=== PATIENT | female | born 1970 | race Caucasian/White ===

== ENCOUNTER 2019-06-10 19:27 | Inpatient (IN) | payer BC ==
[2019-06-10 22:00] LABS: Urine Appearance Clear; Urine Bilirubin Negative (Negative); Urine Blood Negative (Negative); Urine Color Yellow; Urine Glucose Negative (Negative); Urine Ketones Trace (Negative); Urine Nitrite Negative (Negative); Urine Protein Negative (Negative); Urine Specific Gravity 1.011 (1.010-1.030); Urine Urobilinogen Negative (Negative)
[2019-06-10 22:02] LABS: ABS Basophils 0.1 10^3/ul (0-0.2); ABS Lymphocytes 0.3 10^3/ul (1.0-4.8); ABS Monocytes 0.8 10^3/ul (0-0.8); ABS Neutrophils 15.8 10^3/ul (1.5-7.7); Eosinophil % 0.1 %; Hematocrit 42 % (35-47); Hemoglobin 14.3 g/dL (12.0-16.0); Lymphocyte % 1.7 %; Mean Corpuscular HGB Conc 34 g/dL (31-36); Mean Corpuscular Hemoglobin 32 pg (27-31); Mean Corpuscular Volume 92 fL (80-97); Mean Platelet Volume 7.4 fL (7.4-10.4); Platelet Count 292 10^3/uL (150-450); Red Blood Count 4.53 10^6 /uL (3.70-4.87); Red Cell Distribution Width 14 % (10-15); White Blood Count 17.1 10^3/uL (3.5-10.8)
[2019-06-10 22:34] LABS: BUN/Creatinine Ratio 11.7 (8-20); Calcium 9.5 mg/dL (8.6-10.3); EGFR African American 129.7 (>60); EGFR Non-African American 107.2 (>60); Potassium 3.9 mmol/L (3.5-5.0)
[2019-06-11] MEDS ORDERED: Ondansetron INJ* 2 MG/ML VIAL IV ONE (00:19)
[2019-06-11] MEDS ORDERED: Ketorolac INJ* 30 MG/ML 1 ML VIAL IV PUSH ONE (00:19)
[2019-06-11] MEDS ORDERED: Morphine 4 MG/ML VIAL (1 ml) 4 MG/ML VIAL IV ONE ×2 (00:19→03:58)
[2019-06-11] MEDS ORDERED: NS 0.9% 1000 ML** 2,000 ML IV ONE (00:19)
--- NOTE | 2019-06-11 00:20 | ED ---
Abdominal Pain/Female - HPI Summary HPI Summary: Patient is a 48 y/o F presenting to [facility] with complaints of lower abdominal pain. Pain onset yesterday and is reported to wax and wane in intensity. She endorses nausea but denies vomiting and abnormal bowel movements. On vitals, patient's temp was 100.6 F. PSHx of hysterectomy is noted. She also claims to have Hx of intestinal twisting. Patient also makes note of a dental infection. On triage, pain is rated 10/10, nothing is noted to aggravate/alleviate Sx. Home medications and allergies are reviewed. - History of Current Complaint Chief Complaint: EDAbdPain Stated Complaint: ABD PAIN PER PT Time Seen by Provider: 06/11/19 00:01 Hx Obtained From: Patient Onset/Duration: Lasting Days, Still Present Timing: Days Pain Intensity: 10 Pain Scale Used: 0-10 Numeric Location: Other - lower abdomen Aggravating Factor(s): Nothing Alleviating Factor(s): Nothing Associated Signs and Symptoms: Positive: Fever, Nausea, Other: - negative - abnormal bowel movements. Negative: Vomiting Allergies/Adverse Reactions: Allergies Allergy/AdvReac Type Severity Reaction Status Date / Time azithromycin Allergy Vomiting Verified 06/11/19 07:21 hydrocodone Allergy Unknown Verified 06/11/19 00:26 Reaction Details meperidine Allergy Unknown Verified 06/11/19 00:26 Reaction Details tramadol Allergy Unknown Verified 06/11/19 07:21 Reaction Details codeine AdvReac Vomiting Verified 06/11/19 00:26 oxycodone AdvReac Vomiting Verified 06/11/19 00:26 PMH/Surg Hx/FS Hx/Imm Hx Respiratory History: Reports: Hx Asthma GI History: Reports: Hx Ulcer - Bleeding - Cancer History Hx Chemotherapy: No Hx Radiation Therapy: No - Surgical History Surgery Procedure, Year, and Place: tubal,hx endometriosis surgery x 4,left oopherectomy,breast implants, Infectious Disease History: No Infectious Disease History: Denies: Traveled Outside the [place] in Last 30 Days - Family History Known Family History: Positive: Other - Breast cancer - Social History Alcohol Use: Daily Alcohol Amount: 12 pack of beer daily x 1 year Substance Use Type: Reports: None Smoking Status (MU): Heavy Every Day Tobacco Smoker Review of Systems Positive: Fever Gastrointestinal: Other - negative - abnormal bowel movements Positive: Abdominal Pain, Nausea. Negative: Vomiting All Other Systems Reviewed And Are Negative: Yes Physical Exam - Summary Physical Exam Summary: Appearance: Well-appearing, Well-nourished, lying in bed comfortably Skin: Warm, dry, no obvious rash Eyes: sclera anicteric, no conjunctival pallor ENT: mucous membranes moist, pharynx appears normal Neck: Supple, nontender Respiratory: Clear to auscultation, no signs of respiratory distress Cardiovascular: Normal S1, S2. No murmurs. Normal distal pulses in tibial and radial bilaterally. Abdomen: Generalized abdominal tenderness with guarding and no rebound. Soft, normal active bowel sounds present Musculoskeletal: Normal, Strength/ROM Intact Neurological: A&Ox3, awake and alert, mentation is normal, speech is fluent and appropriate Psychiatric: affect is normal, does not appear anxious or depressed Triage Information Reviewed: Yes Vital Signs On Initial Exam: Initial Vitals Temp Pulse Resp BP Pulse Ox 100.6 F 92 18 151/101 97 06/10/19 19:29 06/10/19 19:29 06/10/19 19:29 06/10/19 19:29 06/10/19 19:29 Vital Signs Reviewed: Yes Diagnostics - Vital Signs Vital Signs Temp Pulse Resp BP Pulse Ox 06/10/19 21:38 100.1 F 101 18 143/89 99 06/10/19 19:29 100.6 F 92 18 151/101 97 - Laboratory Lab Results: Lab Results 06/10/19 06/10/19 06/10/19 Range/Units 21:43 21:53 21:53 WBC 17.1 H (3.5-10.8) 10^3/uL RBC 4.53 (3.70-4.87) 10^6 /uL Hgb 14.3 (12.0-16.0) g/dL Hct 42 (35-47) % MCV 92 (80-97) fL MCH 32 H (27-31) pg MCHC 34 (31-36) g/dL RDW 14 (10-15) % Plt Count 292 (150-450) 10^3/uL MPV 7.4 (7.4-10.4) fL Neut % (Auto) 92.8 % Lymph % (Auto) 1.7 % Bay % (Auto) 4.9 % Eos % (Auto) 0.1 % Baso % (Auto) 0.5 % Absolute Neuts (auto) 15.8 H (1.5-7.7) 10^3/ul Absolute Lymphs (auto) 0.3 L (1.0-4.8) 10^3/ul Absolute Monos (auto) 0.8 (0-0.8) 10^3/ul Absolute Eos (auto) 0.0 (0-0.6) 10^3/ul Absolute Basos (auto) 0.1 (0-0.2) 10^3/ul Absolute Nucleated RBC 0.0 10^3/ul Nucleated RBC % 0.0 Sodium 131 L (135-145) mmol/L Potassium 3.9 (3.5-5.0) mmol/L Chloride 100 L (101-111) mmol/L Carbon Dioxide 25 (22-32) mmol/L Anion Gap 6 (2-11) mmol/L BUN 7 (6-24) mg/dL Creatinine 0.60 (0.51-0.95) mg/dL Est GFR ( Amer) 129.7 (>60) Est GFR (Non-Af Amer) 107.2 (>60) BUN/Creatinine Ratio 11.7 (8-20) Glucose 138 H (70-100) mg/dL Calcium 9.5 (8.6-10.3) mg/dL Urine Color Yellow Urine Appearance Clear Urine pH 7.0 (5-9) Ur Specific [place] 1.011 (1.010-1.030) Urine Protein Negative (Negative) Urine Ketones Trace A (Negative) Urine Blood Negative (Negative) Urine Nitrate Negative (Negative) Urine Bilirubin Negative (Negative) Urine Urobilinogen Negative (Negative) Ur Leukocyte Esterase Negative (Negative) Urine Glucose Negative (Negative) Result Diagrams: 06/14/19 05:16 06/14/19 05:16 Lab Statement: Any lab studies that have been ordered have been reviewed, and results considered in the medical decision making process. - CT CT ABD/PEL CT Interpretation Completed By: Radiologist Summary of CT Findings: CT ABD/PEL IMPRESSION: 1. Contracted distal ileum with suggestion of slight wall and fold thickening. suggesting distal ileitis. There is mild distention of the preceding small. bowel suggesting some degree of relative obstruction. 2. Mild right middle lobe atelectasis since 2015. THIS REPORT WAS REVIEWED BY DR. KELLY. Abdominal Pain Fem Course/Dx - Course Course Of Treatment: Patient is a 48 y/o F presenting to [facility] with complaints of lower abdominal pain. Pain onset yesterday and is reported to wax and wane in intensity. She endorses nausea but denies vomiting and abnormal bowel movements. On vitals, patient's temp was 100.6 F. PSHx of hysterectomy is noted. She also claims to have Hx of intestinal twisting. On physical exam, there is generalized abdominal tenderness with guarding and no rebound. Bloodwork was obtained. Abnormal labs include WBC 17.1, MCH 32, absolute neuts 15.8, absolute lymphs 0.3, sodium 131, chloride 100, glucose 138. UA showed trace ketones. CT ABD/PEL IMPRESSION: 1. Contracted distal ileum with suggestion of slight wall and fold thickening. suggesting distal ileitis. There is mild distention of the preceding small. bowel suggesting some degree of relative obstruction. 2. Mild right middle lobe atelectasis since 2015. During ED course, patient received fluids, piperacillin sod/tazobactam sod 3.375 gm in sodium chloride, 100 mls @ 200 mls/hr IVPB, Zofran 8 mg IV, morphine 10 mg IV, 4 IV, and toradol 10 mg IV. Patients case was discussed with Dr. Lima, who agrees to consult on the patients case. Patients case was discussed with Dr. Samson Singleton accepts for admission. - Diagnoses Provider Diagnoses: Abdominal pain, SBO (small bowel obstruction) - Provider Notifications Discussed Care Of Patient With: Evans Davies Time Discussed With Above Provider: 04:25 Instructed by Provider To: Other - [id number] - Patients case was discussed with Dr. Lima, who agrees to consult on the patients case. Patients case was discussed with Dr. Davies, Dr. Davies accepts for admission. Discharge ED - Sign-Out/Discharge Documenting (check all that apply): Patient Departure - admit Patient Received Moderate/Deep Sedation with Procedure: No - Discharge Plan Condition: Fair Disposition: ADMITTED TO [facility] - Billing Disposition and Condition Condition: FAIR Disposition: Admitted to [facility] - Attestation Statements Document Initiated by Scribe: Yes Documenting Scribe: OCTAVIO SINGLETARY Provider For Whom Scribe is Documenting (Include Credential): JONATHAN KELLY MD Scribe Attestation: I, OCTAVIO SINGLETARY, scribed for JONATHAN KELLY MD on 06/15/19 at 0626. Scribe Documentation Reviewed: Yes Provider Attestation: The documentation as recorded by the scribeOCTAVIO accurately reflects the service I personally performed and the decisions made by me, JONATHAN KELLY MD Status of Scribginger Document: Viewed
[2019-06-11] MEDS ORDERED: Iohexol 300* (CONTRAST) 10 ML SDV IV ONE (00:31)
[2019-06-11] MEDS: Morphine 4 MG/ML VIAL (1 ml) 4 MG/ML VIAL IV PRN ×3 (02:06→13:41)
[2019-06-11] MEDS ORDERED: Piperacillin/Tazobac ADVAN(*) 3.375 GM in NS 0.9% 100 ML* 100 ML IVPB ONE (03:54)
[2019-06-11] MEDS: metroNIDAZOLE IV 500 MG/100ML* 500 MG/100 ML BAG IVPB SCH ×4 (07:21→23:57)
[2019-06-11] MEDS: Ciprofloxacin 400MG IVPREMIX(* 400 MG/200 ML BAG IVPB SCH ×3 (07:21→19:55)
[2019-06-11] MEDS: Nicotine* 2MG (FRUIT FLAVOR) GUM PO PRN ×4 (07:51→19:43)
[2019-06-11] MEDS: PROCHLORPERAZINE INJ 5 MG/ML 2 ML VIAL IV PRN ×3 (07:52→21:33)
[2019-06-11] MEDS: Enoxaparin(*) 40 MG/0.4 ML SYR SUBCUT SCH (07:59)
--- NOTE | 2019-06-11 09:49 | HP ---
CC: Dr. Sybil Jeffers; Dr. Rudy Spangler ADMISSION HISTORY AND PHYSICAL: DATE OF ADMISSION: 06/11/19 PRIMARY CARE PHYSICIAN: Dr. Sybil Jeffers. POOL ATTENDANT: Dr. Rudy Spangler. CHIEF COMPLAINT: Abdominal pain. HISTORY OF PRESENT ILLNESS: This is a 48-year-old female with past medical history of diverticulitis and diverticulosis previous small bowel obstruction and bleeding ulcers and recently diagnosed hypertension, but not started on the blood pressure medication yet, came in due to severe abdominal pain. The patient stated that she was in her usual state of health up until Monday morning when she started having severe abdominal pain, which is diffuse in nature going towards the back accompanied by some nausea and she stated that she had waves of pain, it almost felt like she was going into labor. The patient otherwise offers no chest pain, no shortness of breath, no vomiting, and no change in her bowel habits or diarrhea. She stated that her last bowel movement was yesterday morning when this all started and which was normal may be a little softer than her usual bowel movements, but otherwise she did not think much of it. PAST MEDICAL HISTORY: As mentioned, recently diagnosed with high blood pressure , but has not started her BP medications yet; history of diverticulitis and diverticulosis; history of SBO a few times; and history of bleeding ulcer. PAST SURGICAL HISTORY: Include breast augmentation surgery bilaterally and had previous laparoscopy for endometriosis with laser surgery multiple times and left laparoscopic oophorectomy in 2006. HOME MEDICATIONS: The patient only currently taking Lunesta p.r.n. for insomnia. ALLERGIES: The patient is allergic to multiple medications including HYDROCODONE, MEPERIDINE, CODEINE and OXYCODONE. All of which give her unknown reaction. FAMILY HISTORY: Family history of breast cancer in mom and high blood pressure in the mother as well. Mother is alive at age 65. Biological father at age 53 for unknown reasons. The patient never really met him or knew any further details. 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 Has a history of smoking about a pack a day for over 20 years, occasional use of alcohol. Denies any drug abuse. She is full code. REVIEW OF SYSTEMS: Fourteen point review of system did not reveal any information other than what is stated in the HPI. PHYSICAL EXAMINATION GENERAL: The patient is awake, alert, oriented x3, was noted to be in no acute respiratory distress. VITAL SIGNS: In the ER, temperature maximum was noted to be 100.6, BP was noted to be 109/65, heart rate 79, respiration rate 18, saturating 96% on room air. HEAD AND NECK: Atraumatic, normocephalic. Bilateral pupils were reactive. Oral mucosa was moist. Neck supple. No jugular venous distention. LUNGS: Clear to auscultation bilaterally. No wheezing, rhonchi or rales. HEART: S1, S2. Regular rate and rhythm. ABDOMEN: Soft, with tenderness, which is diffuse in nature, but worse in the lower abdomen especially on the right side, right lower quadrant and suprapubic area. EXTREMITIES: No cyanosis, clubbing or edema. DIAGNOSTICS STUDIES/LAB DATA: CBC shows elevated white count of 17.5, hemoglobin and hematocrit is stable, platelets count was stable. Basic metabolic panel was unremarkable except for some mild hyponatremia with sodium of 131. Urinalysis was positive for trace ketones, but negative for any nitrites. CT of abdomen and pelvis was read as contracted distal ileum with a suggestion of slight wall and fold thickening suggestive of distal ileitis. There is mild distention of preceding small bowel suggestive of some degree of relative obstruction, mild right middle lobe atelectasis since 2015 unchanged. IMPRESSION: This is 48-year-old female with history of diverticulitis here with the abdominal pain and noted to have ileitis. ASSESSMENT AND PLAN: 1. Sepsis secondary to ileitis. Sepsis qualifiers include high white count and elevated temperature of 100.6. We will start the patient on Cipro, Flagyl, start the patient on clear liquid diet and IV hydration. We will consult Dr. Spangler, who is patient's GI, but I spoke with Dr. Thompson, who will pass on message to Dr. Spangler to evaluate the patient, as the patient may benefit from some kind of colonoscopy versus endoscopy to evaluate for the ileitis to see if this is infectious versus inflammatory and to see if she would benefit from an inflammatory bowel disease testing. The other more remote possibility that it could be is given her history of endometritis, this could be a recurrence of endometritis as well, but all these possibilities would be based on GI's recommendations. 2. History of hypertension, currently stable blood pressures. We will monitor her blood pressure and consider starting any antihypertensives if it is elevated. 3. Hyponatremia likely secondary to dehydration and decreased oral intake. 4. DVT prophylaxis with Lovenox. 5. Code status full code. [id number]/[facility] #: [id number] MTDD
[2019-06-11] MEDS: Nicotine PATCH 21 MG/24 HR* PATCH TRANSDERM SCH (11:32)
--- NOTE | 2019-06-11 13:04 | CONS ---
CC: [facility]; Dr. Rudy Spangler; Dr. Sybil Jeffers, [facility] * CONSULTATION REPORT: DATE OF CONSULT: 06/11/19 REFERRING PROVIDER: Dr. Satish Brown from the emergency room. REASON FOR CONSULTATION: Abdominal pain. HISTORY OF PRESENT ILLNESS: Ms. Renee Armstrong is a 48-year-old woman with a history of diarrhea and per old records chronic abdominal discomfort, who presented to the emergency room yesterday evening with 12-hour complaints of abdominal pain mainly starting on the left side radiating across to the right. This was described as crampy and colicky, not radiating to her back. She had no nausea. She had a normal soft bowel movement yesterday morning. She had no fevers, shakes, or chills but was noted to have an elevated fever while in the emergency room last night. She gives a history of bowel obstructions in the past where she was told that she had "twisted bowel" but did not require surgery. She states that she was treated here at [facility] for this, but on review of the records over the past 10 to 12 years, I see no hospital admissions for diagnoses of small bowel obstructions; however, she has been in the emergency room twice in the last several years and has had 2 CAT scans done that were essentially unremarkable. She does have known diverticular disease. She has also undergone several laparoscopies apparently for endometrial disease. These were done at [facility]. She has also had a left ovary removed and she describes as a partial hysterectomy as well. She had undergone an upper endoscopy and colonoscopy with Dr. Spangler last in 2016. This showed diverticulosis and apparently severe adhesions and some erosions and gastritis in the stomach, but there were no other acute findings. Last night in the emergency room, she noted to have a fever of 100.6. Laboratory values included a white blood cell count of 17,000 with increase in absolute neutrophils. She was slightly hyponatremic, had a normal BUN and creatinine. I do not see whether lactic acid or C-reactive protein was performed. Liver transaminases were normal Urinalysis was unremarkable. She underwent a CT scan of the abdomen and pelvis. I did review these images and also reviewed these with Dr. Shah here at [facility] this morning. This showed no free fluid or extraluminal air. There was perhaps some narrowing of the distal ileum but he was not certain if this may have been normal peristalsis. There was some mild dilation of the distal small intestine ; however, there is rapid contrast flow into the cecum, which was fairly large and filled well with stool as contrast up into the transverse colon. Gallbladder was unremarkable. The appendix was clearly visualized and was normal. There was no free pelvic fluid or other acute findings. She was admitted to the hospitalist service and surgical consultation has been obtained. PAST MEDICAL HISTORY: 1. Chronic abdominal discomfort. 2. High blood pressure. 3. Diverticulosis. 4. Endometriosis. 5. Gastritis. PAST SURGICAL HISTORY: 1. Bilateral breast augmentation surgery. 2. Laparoscopy as per above for endometriosis. 3. Left laparoscopic oophorectomy. MEDICATIONS: Lunesta. ALLERGIES: To HYDROCODONE, MEPERIDINE, CODEINE, and OXYCODONE. She is vague about the reaction and is also vague as to why she has used these narcotics in the past. SOCIAL HISTORY: She is and lives in [place]. She has 2 teenage children. She currently works from home. She has a history of smoking about a pack a day for over 20 years and occasionally uses alcohol. She denies drug abuse. REVIEW OF SYSTEMS: A 14-point review of systems did not reveal any further information as described above. PHYSICAL EXAM: Temperature 97.1, pulse 79, blood pressure 122/67. General: She is a well-developed, slender female, appears to be in no apparent distress although she is somewhat fatigued. Sclerae are anicteric. Her oral mucosa was slightly dry. Lungs were clear to auscultation with normal respiratory effort. Heart has regular rate and rhythm without murmurs, rubs, or gallops. Her abdomen is soft but slightly distended. She has some laparoscopic well-healed incisions without hernia. I appreciate no inguinal or femoral hernias. She had normoactive bowel sounds throughout. She has some mild generalized tenderness. There is no rebound, guarding, or peritoneal irritation. DIAGNOSTIC STUDIES/LAB DATA: Laboratory values as above. IMPRESSION: Abdominal discomfort with a leukocytosis. She apparently has chronic abdominal discomfort at times and has chronic diarrhea, has been seen by Dr. Spangler in the past. CT scan as per above shows no evidence of an acute inflammatory process such as appendicitis or cholecystitis or diverticulitis and there is no free fluid or extra-luminal air. There is no evidence of obstruction. There was concern there may be some narrowing or thickening of portion of the ileum, but this may well be peristaltic in nature. She has been admitted to the hospitalist service, was started on IV Cipro and Flagyl. Dr. Spangler from GI has also been consulted. At this point, I do not believe that she has an acute surgical abdomen although certainly the leukocytosis is concerning, although now she is afebrile with no evidence of tachycardia and her exam is fairly benign at this point. I agree with the present management. We will follow her closely with her. If she developed worsening abdominal discomfort and persistent or elevated leukocytosis, or development of sepsis, she will most likely require surgical intervention. Thank you for the consultation. We will follow her closely with you. [id number]/[facility] #: [id number] ALAN
[2019-06-11] MEDS ORDERED: traZODone TAB* 50 MG TAB PO PRN (15:12)
[2019-06-11] MEDS: NS 0.9% 1000 ML** 1,000 ML IV SCH (15:37)
[2019-06-11 18:10] LABS: C Reactive Protein 62.36 mg/L (<8.01)
[2019-06-11] MEDS ORDERED: HYDROmorphone TAB* 2 MG PO PRN (18:40)
[2019-06-11] MEDS ORDERED: Morphine INJ* 2 MG/ML 1 ML SYRINGE (TWO MG - NEW SYRINGE VERSION) IV PRN (18:49)
--- NOTE | 2019-06-11 19:00 | PN ---
Subjective Date of Service: 06/11/19 Interval History: patient seen, she was very upset about being in the hospital she wanted to go home as she was not able to sleep all night last night, also decline having any procedure if required. I met with the patient, I was able to explain to her that no procedure is required at this time and consultation with GI is only to review her case/chart and to make recommendations. Colonoscopy has not been recommended and if it is to be recommended we will not force upon her. She asked to have medication to aid with sleep and she agreed to try trazodone. I was able to have remain at least one day and try full diet. She was just admitted today and she is being seen for the first day post admissions. She has not vomited and will advance to full diet. She agreed to try po dilaudid in am to see if it controls her pain, I did already send Rx to her for Dilaudid and agreed to quantity only 12 tabs only. Past Medical History: Unchanged from Admission Objective Active Medications: Enoxaparin Sodium (Lovenox(*)) 40 mg SUBCUT Q24H [facility] Last Admin: 06/11/19 07:59 Dose: Not Given Hydromorphone HCl (Dilaudid Tab*) 2 mg PO Q6H PRN PRN Reason: PAIN - SEVERE Ciprofloxacin/Dextrose (Cipro 400 Mg Ivpremix(*)) 400 mg in 200 mls @ 200 mls/ hr IVPB Q12H [facility]; Protocol Last Admin: 06/11/19 07:21 Dose: 200 mls/hr Sodium Chloride (Ns 0.9% 1000 Ml) 1,000 mls @ 125 mls/hr IV .per rate [facility] Stop: 06/12/19 14:59 Last Admin: 06/11/19 15:37 Dose: 125 mls/hr Metronidazole/Sodium Chloride (Flagyl 500 Mg Ivpb*) 500 mg in 100 mls @ 100 mls /hr IVPB 0730,1530,2330 [facility] Last Admin: 06/11/19 15:37 Dose: 100 mls/hr Morphine Sulfate (Morphine 4 Mg/Ml Vial (1 Ml)) 2 mg IV Q2H PRN PRN Reason: PAIN - SEVERE Stop: 06/12/19 05:00 Nicotine (Nicotine Patch 21 Mg/24 Hr*) 1 patch TRANSDERM DAILY [facility] Last Admin: 06/11/19 11:32 Dose: Not Given Nicotine Polacrilex (Nicotine Gum*) 2 mg PO Q2H PRN PRN Reason: CRAVING Last Admin: 06/11/19 15:56 Dose: 2 mg Pharmacy Profile Note (Nicotine Patch Removal Note*) 1 note FOLLOW UP 2100 [facility]SEQU[facility]EL Prochlorperazine Edisylate (Compazine Inj*) 5 mg IV Q6H PRN PRN Reason: NAUSEA/VOMITING Last Admin: 06/11/19 16:53 Dose: 5 mg Trazodone HCl (Desyrel Tab*) 50 mg PO BEDTIME PRN PRN Reason: SLEEP Vital Signs - 8 hr 06/11/19 06/11/19 06/11/19 11:15 13:41 15:15 Temperature 97.1 F 97.8 F Pulse Rate 84 86 Respiratory 16 16 16 Rate Blood Pressure 107/69 110/74 (mmHg) O2 Sat by Pulse 91 92 Oximetry 06/11/19 15:37 Temperature Pulse Rate Respiratory 16 Rate Blood Pressure (mmHg) O2 Sat by Pulse Oximetry Oxygen Devices in Use Now: None Appearance: awake, alert no distress Ears/Nose/Mouth/Throat: NL Teeth, Lips, Gums, Mucous Membranes Moist Neck: NL Appearance and Movements; NL JVP, Trachea Midline Respiratory: Symmetrical Chest Expansion and Respiratory Effort, Clear to Auscultation Cardiovascular: NL Sounds; No Murmurs; No JVD, No Edema Abdominal: - - tender on palpations. tolerating clear Extremities: No Edema Skin: No Rash or Ulcers Neurological: Alert and Oriented x 3 Result Diagrams: 06/10/19 21:53 06/10/19 21:53 Additional Lab and Data: Lab Results 06/10/19 06/10/19 06/10/19 Range/Units 21:43 21:53 21:53 WBC 17.1 H (3.5-10.8) 10^3/uL RBC 4.53 (3.70-4.87) 10^6 /uL Hgb 14.3 (12.0-16.0) g/dL Hct 42 (35-47) % MCV 92 (80-97) fL MCH 32 H (27-31) pg MCHC 34 (31-36) g/dL RDW 14 (10-15) % Plt Count 292 (150-450) 10^3/uL MPV 7.4 (7.4-10.4) fL Neut % (Auto) 92.8 % Lymph % (Auto) 1.7 % [place] % (Auto) 4.9 % Eos % (Auto) 0.1 % Baso % (Auto) 0.5 % Absolute Neuts (auto) 15.8 H (1.5-7.7) 10^3/ul Absolute Lymphs (auto) 0.3 L (1.0-4.8) 10^3/ul Absolute Monos (auto) 0.8 (0-0.8) 10^3/ul Absolute Eos (auto) 0.0 (0-0.6) 10^3/ul Absolute Basos (auto) 0.1 (0-0.2) 10^3/ul Absolute Nucleated RBC 0.0 10^3/ul Nucleated RBC % 0.0 Sodium 131 L (135-145) mmol/L Potassium 3.9 (3.5-5.0) mmol/L Chloride 100 L (101-111) mmol/L Carbon Dioxide 25 (22-32) mmol/L Anion Gap 6 (2-11) mmol/L BUN 7 (6-24) mg/dL Creatinine 0.60 (0.51-0.95) mg/dL Est GFR ( Amer) 129.7 (>60) Est GFR (Non-Af Amer) 107.2 (>60) BUN/Creatinine Ratio 11.7 (8-20) Glucose 138 H (70-100) mg/dL Calcium 9.5 (8.6-10.3) mg/dL Urine Color Yellow Urine Appearance Clear Urine pH 7.0 (5-9) Ur Specific [place] 1.011 (1.010-1.030) Urine Protein Negative (Negative) Urine Ketones Trace A (Negative) Urine Blood Negative (Negative) Urine Nitrate Negative (Negative) Urine Bilirubin Negative (Negative) Urine Urobilinogen Negative (Negative) Ur Leukocyte Esterase Negative (Negative) Urine Glucose Negative (Negative) Assess/Plan/Problems-Billing Assessment: 48 y/o female admitted for terminal ileitis - Patient Problems (1) Ileitis, terminal Current Visit: Yes Status: Acute Code(s): K50.00 - CROHN'S DISEASE OF SMALL INTESTINE WITHOUT COMPLICATIONS SNOMED Code(s): 798799553 Comment: - CT scan noted pertinent for terminal ileitis and questionable SBO. - Seen by surgery cleared from their to continue medical therapy. No concerns for bowel obstructions. - GI consult pending. Patient clearly does not want interventions. She was reassured that it is only consultations. It does not mean she needs interventions. - She wanted to go home on arrival, I was able to stay till am and in am MD will reassess but if she still desire to go, I did place her on dilaudid starting tomorrow and agreed to it. I did send only 12 tabs and she is aware will not provide greater quantity - [employer] was consulted and she did not have any opiate Rx, only Rx is for Lunesta - Continue IV cipro, flagyl. Resume gentle IVF. If improved in am she will need GI follow up and Rx for Cipro and Flagyl (2) Insomnia Current Visit: Yes Status: Acute Code(s): G47.00 - INSOMNIA, UNSPECIFIED SNOMED Code(s): 414941704 Comment: - Trazodone 50 mg HS if not effective may take another one in 30 min - Lunesta at home when discharged
[2019-06-11 19:08] LABS: Albumin 4.6 g/dL (3.2-5.2); Albumin/Globulin Ratio 1.7 (1-3); Globulin 2.7 g/dL (2-4); Indirect Bilirubin 0.5 mg/dL (0.3-1.0); Total Bilirubin 0.6 mg/dL (0.2-1.0); Total Protein 7.3 g/dL (6.4-8.9)
--- NOTE | 2019-06-11 20:00 | CONS ---
GASTROENTEROLOGY CONSULT: DATE: 06/11/19 CONSULTING PHYSICIAN: Sybil Jeffers MD DICT[facility] ENDS HERE [id number] #: [id number] MTDD
--- NOTE | 2019-06-11 20:18 | CONS ---
GASTROENTEROLOGY CONSULT: DATE: 06/11/19 CONSULTING PHYSICIANS: Dr. Rizwan Hawkins, Dr. Rudy Spangler. REASON FOR CONSULTATION: Lower abdominal pain beginning yesterday morning with no vomiting and CT scan questioning thickening of the terminal ileum. HISTORY OF PRESENT ILLNESS: This 48-year-old woman who has a history of endometriosis, status post several laparoscopies, status post left oophorectomy , gastritis on gastroscopy 06/10/16 (Clotest negative NSAID history unknown), is trying to lose weight by improving her diet and has taken up a few pounds this year. She has a regular bowel pattern every morning and then is typically done. She had been feeling her usual self and then yesterday morning awakening at her normal 5 a.m. time noticed a lower abdominal symmetric pain. It was somewhat crampy. She did attend a dental visit in [place] and on returning felt progressively worse. There were waves of pain. She did not vomit and was not aware of any fever. She had had a normal bowel movement first thing in the morning. In the evening, she came to the emergency room and her temp was 100.6, white count 17.5. CT scan showed generally normal contours to the bowel, no free fluid or air and a question of thickening of the terminal ileum. The appendix appeared normal. She was admitted, placed on Cipro / Flagyl and kept on clear liquids. Overnight, she has been afebrile. Surgery consult with Dr. Lima with detailed review of the CT scan determined that she does not appear to have a surgical indication at this time. Today, she has been on clear liquids and has taken them successfully. There has been no vomiting except shortly after a second morphine shot. She has had no bowel movements. PAST MEDICAL HISTORY: 1. Endometriosis - several laparoscopies at [facility], she reports. 2. Chronic abdominal pain - she had a workup in 2016 with upper endoscopy showing gastritis. She was placed on omeprazole and said she was on it a couple of years and then reporting hair loss and other symptoms about a year ago her primary doctor Sybil Jeffers, she says, recommended she stop it. She has not seen Dr. Spangler in a couple of years and has not been on any gastrointestinal prescriptions or OTC agents. At the time of the gastroscopy in 2016, her CBC was normal with hemoglobin 15.5. Celiac panel negative. Attempted colonoscopy at the time of the gastroscopy, encountered adhesions and intolerance to the procedure despite 27 mg Versed and 200 mcg fentanyl. Diverticulosis was seen. Diverticulosis had been seen on other CT scans in 2016 twice with no findings for diverticulitis. Dr. Lima in surgical consult observes that there had been no admissions for small bowel obstruction in the last 10 years and that statement in history that may reflect the adhesions known from her endometriosis and sigmoidoscopy experience. MEDICATIONS: After discontinuing omeprazole (the patient's recollection of drug ), she is currently only taking Lunesta. ALLERGIES: To multiple NARCOTICS, unknown reaction as documented by Dr. Davies in the history and physical. FAMILY HISTORY: Her mother has had breast cancer. Her has Crohn disease, treatment uncertain, but he is doing well. Her [id number] has had a severe ulcer condition. 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 She has children ages 15, 17, and 27, with many of them playing hockey. REVIEW OF SYSTEMS: No history cardiac disease, pulmonary disease, TB, hepatitis , jaundice, renal stones. PHYSICAL EXAM: She is a tanned, somewhat flushed woman in no overt distress. To questions, she gives emphatic answers and states that, "I know I don't have Crohn disease....... I am going home tomorrow..... they said I was cleared to go " HEENT exam shows no icterus. Mucous membranes are normal. She has no adenopathy. Her lungs are clear. Heart sounds are normal. Breast and pelvic exam is deferred. The abdomen is symmetric with distant bowel sounds with no mechanical sounds, firm with deep tenderness diffusely without any localizing findings. Rectal deferred. Extremities show no edema or deformity. Most recent vitals: Temperature 97.8, blood pressure 110/74, pulse 86. DIAGNOSTIC STUDIES/LAB DATA: CT review - no free fluid or localized swelling. The contrast filled small bowel is completely filling the right lower quadrant. Labs - last night white count 17.1 and CRP 62.36. LFT is pending. IMPRESSION: Probable atypical gastroenteritis versus diverticulitis although the lack of diarrhea or stranding is curious. Salmonella can have delayed diarrhea. A localized fluid filled internal hernia distally is possible to give a partial small bowel obstruction. The CT scan does not show impressive bowel dilation. Antibiotics have been started and that seems reasonable, given the WBC and CRP though she does not have a clear source. She is quite insistent that everything will be fine and she will be discharged tomorrow and while that is likely to be the case her course and labs will have to be followed as the outcome is unclear. [id number]/[facility] #: [id number] MTDVic
[2019-06-11] MEDS: Nicotine Patch Removal NOTE FOLLOW UP SCH (20:31)
[2019-06-12] MEDS: NS 0.9% 1000 ML** 1,000 ML IV SCH ×2 (02:01→11:59)
[2019-06-12] MEDS ORDERED: HYDROmorphone TAB* 2 MG PO PRN (06:00)
[2019-06-12] MEDS: Enoxaparin(*) 40 MG/0.4 ML SYR SUBCUT SCH (06:32)
[2019-06-12] MEDS ORDERED: Acetaminophen TAB* 325 MG PO PRN (06:57)
[2019-06-12 07:00] LABS: Hematocrit 39 % (35-47); Hemoglobin 13.4 g/dL (12.0-16.0); Mean Corpuscular HGB Conc 34 g/dL (31-36); Mean Corpuscular Hemoglobin 32 pg (27-31); Mean Corpuscular Volume 93 fL (80-97); Mean Platelet Volume 8.1 fL (7.4-10.4); Platelet Count 254 10^3/uL (150-450); Red Blood Count 4.25 10^6 /uL (3.70-4.87); Red Cell Distribution Width 14 % (10-15); White Blood Count 24.1 10^3/uL (3.5-10.8)
[2019-06-12 07:15] LABS: BUN/Creatinine Ratio 8.9 (8-20); Calcium 8.7 mg/dL (8.6-10.3); EGFR African American 180.7 (>60); EGFR Non-African American 149.3 (>60); Magnesium 1.6 mg/dL (1.9-2.7); Phosphorus 2.5 mg/dL (2.5-5.0); Potassium 3.5 mmol/L (3.5-5.0)
[2019-06-12 07:29] LABS: ABS Basophils 0.1 10^3/ul (0-0.2); ABS Lymphocytes 0.5 10^3/ul (1.0-4.8); ABS Monocytes 1.2 10^3/ul (0-0.8); ABS Neutrophils 22.4 10^3/ul (1.5-7.7); Eosinophil % 0.2 %
[2019-06-12] MEDS: Ciprofloxacin 400MG IVPREMIX(* 400 MG/200 ML BAG IVPB SCH ×2 (08:23→23:48)
[2019-06-12] MEDS: Nicotine* 2MG (FRUIT FLAVOR) GUM PO PRN ×2 (08:31→22:13)
[2019-06-12] MEDS: metroNIDAZOLE IV 500 MG/100ML* 500 MG/100 ML BAG IVPB SCH ×3 (09:40→23:48)
[2019-06-12] MEDS: Nicotine PATCH 21 MG/24 HR* PATCH TRANSDERM SCH (09:48)
[2019-06-12] MEDS ORDERED: HYDROmorphone INJ1* 1 MG/ML SYRINGE IV SLOW PU PRN (09:50)
[2019-06-12] MEDS: HYDROmorphone INJ1* 1 MG/ML SYRINGE IV SLOW PU PRN ×2 (10:46→14:03)
[2019-06-12] MEDS: PROCHLORPERAZINE INJ 5 MG/ML 2 ML VIAL IV PRN (10:47)
--- NOTE | 2019-06-12 11:42 | PN ---
Progress Note - Progress Note Date of Service: 06/12/19 SOAP: Subjective: More abdominal distension and pain overnight No flatus or BM Vomited this morning while down in Xray. Objective: Temp Pulse Resp BP Pulse Ox 98 F 88 20 135/73 93 06/12/19 07:15 06/12/19 07:15 06/12/19 10:46 06/12/19 07:15 06/12/19 07:15 Intake & Output 06/10/19 06/11/19 06/12/19 06/13/19 06:59 06:59 06:59 06:59 Intake Total 1999 3350 Balance 1999 3350 Weight 104 lb 110 lb Intake: IV Fluids 1999 1950 NS (0.9%) 1550 IVPB 300 ABX - CIPROFLOXACIN 200 ABX - FLAGYL 100 Oral 1100 Other: # Voids 0 PEX: Appears uncomfortable-awake and alert Lungs are clear Abd is distended and somewhat firm. Decreased bowel sounds throughout. Tenderness and rigidity throughout with guarding and rebound tenderness mainly on the left side. No hernias. Laboratory Results - last 24 hr 06/10/19 06/11/19 06/12/19 21:53 19:09 06:31 WBC 24.1 H RBC 4.25 Hgb 13.4 Hct 39 MCV 93 MCH 32 H MCHC 34 RDW 14 Plt Count 254 MPV 8.1 Neut % (Auto) 92.6 Lymph % (Auto) 2.0 [place] % (Auto) 5.0 Eos % (Auto) 0.2 Baso % (Auto) 0.2 Absolute Neuts (auto) 22.4 H Absolute Lymphs (auto) 0.5 L Absolute Monos (auto) 1.2 H Absolute Eos (auto) 0.0 Absolute Basos (auto) 0.1 Absolute Nucleated RBC 0.0 Nucleated RBC % 0.0 Sodium 131 L Potassium 3.9 Chloride 100 L Carbon Dioxide 25 Anion Gap 6 BUN 7 Creatinine 0.60 Est GFR ( Amer) 129.7 Est GFR (Non-Af Amer) 107.2 BUN/Creatinine Ratio 11.7 Glucose 138 H Calcium 9.5 Phosphorus Magnesium Total Bilirubin 0.60 Direct Bilirubin 0.10 Indirect Bilirubin 0.5 AST 15 ALT 11 Alkaline Phosphatase 49 C-Reactive Protein 62.36 H 196.04 H Total Protein 7.3 Albumin 4.6 Globulin 2.7 Albumin/Globulin Ratio 1.7 Lipase 11 09/18/19 06:31 WBC RBC Hgb Hct MCV MCH MCHC RDW Plt Count MPV Neut % (Auto) Lymph % (Auto) [place] % (Auto) Eos % (Auto) Baso % (Auto) Absolute Neuts (auto) Absolute Lymphs (auto) Absolute Monos (auto) Absolute Eos (auto) Absolute Basos (auto) Absolute Nucleated RBC Nucleated RBC % Sodium 133 L Potassium 3.5 Chloride 103 Carbon Dioxide 23 Anion Gap 7 BUN 4 L Creatinine 0.45 L Est GFR ( Amer) 180.7 Est GFR (Non-Af Amer) 149.3 BUN/Creatinine Ratio 8.9 Glucose 117 H Calcium 8.7 Phosphorus 2.5 Magnesium 1.6 L Total Bilirubin Direct Bilirubin Indirect Bilirubin AST ALT Alkaline Phosphatase C-Reactive Protein Total Protein Albumin Globulin Albumin/Globulin Ratio Lipase AXR 06/12 reviewed with radiology--contrast in colon, however more marked dilation of proximal small bowel consistent with SBO?? Assessment: Abdominal pain, leukocytosis-mild tachycardia, nausea and vomiting. She has become more distended overnight and elevation of WBC is very concerning, considering she has been on IV abx. Her exam today with increased pain and tenderness. She has been slightly tachycardic with no fever. Despite CT scan on admission that did not appear to show obstruction, clinically and radiologically she appears obstructed and with pain and leukocytosis concern is with possible internal hernia with vascular compromise. I discussed with Dr. Thompson from GI-he does not feel there is any medical condition present (i.e. gastroenteritis, Crohn's) that would explain her symptoms and has no further recommendations and he defers to surgical management. I also discussed care with Dr. Olguin, hospitalist. I discussed care with both the patient and her several times this morning at the bedside. I expressed my concerns regarding her abdominal pain and progression of her abdominal distension along with the increase in WBC; these findings can represent vascular compromise of small bowel or intra- abdominal sepsis that may require surgical intervention. I don't believe there is any medical condition that can explain her symptoms. I discussed possibility of repeating a CT scan but I suspect this may not give us new information and may delay appropriate care. After our discussion I have recommended diagnostic laparoscopy with possible exploratory laparotomy today. Procedure was discussed with them and the risks of , but not limited to, of bleeding, infection, possible bowel resection, injury to peritoneal or retroperitoneal structures, possibility that exploration may not reveal any pathology was all discussed. This would require a general anesthesia. A NGT was attempted to be placed but was not successful and she has refused further attempts at this time. She agrees to proceed with surgery and this will be scheduled for today. []
[2019-06-12] MEDS ORDERED: Buffered Lidocaine 1% SYRIN* 1 ML/SYRINGE INTRADERM ONE ×2 (13:46→14:45)
[2019-06-12] MEDS ORDERED: Dexamethasone IV* 4 MG/ML 1 ML (4 MG) IV SLOW PU ONE (13:46)
[2019-06-12] MEDS ORDERED: Levalbuterol 0.63MG/3ML NEB* UNIT OF USE INH ONE ×3 (13:46→15:04)
[2019-06-12] MEDS: Nicotine Patch Removal NOTE FOLLOW UP SCH (13:57)
[2019-06-12] MEDS ORDERED: Lactated Ringers 1000 ML Bag* 1,000 ML IV SCH (14:00)
[2019-06-12] MEDS ORDERED: Rocuronium* 10 MG/ML VIAL ONE ×2 (14:18→15:08)
[2019-06-12] MEDS ORDERED: fentaNYL* 50 MCG/ML 5 ML VIAL (250 MCG VIAL) ONE (14:18)
[2019-06-12] MEDS ORDERED: Ketorolac INJ* 30 MG/ML 1 ML VIAL ONE (14:19)
[2019-06-12] MEDS ORDERED: Propofol* 10 MG/ML 20 ML BTL ONE (14:19)
[2019-06-12] MEDS ORDERED: Ondansetron INJ* 2 MG/ML VIAL ONE (14:19)
[2019-06-12] MEDS ORDERED: Midazolam* 1 MG/ML 5 ML VIAL (5 MG) ONE (14:19)
[2019-06-12] MEDS ORDERED: Lidocaine 2% PF * 5 ML VIAL ONE (14:19)
[2019-06-12] MEDS ORDERED: Dexamethasone IV* 4 MG/ML 1 ML (4 MG) ONE (14:40)
[2019-06-12] MEDS ORDERED: Scopolamine 1.5 mg* PATCH ONE (14:56)
[2019-06-12] MEDS ORDERED: Sugammadex * 200 MG/2 ML VIAL IV PUSH ONE (15:08)
[2019-06-12] MEDS ORDERED: Bupivacaine 0.25% EPI 200,000* 30 ML SDV ONE (15:24)
[2019-06-12] MEDS ORDERED: metroNIDAZOLE IV 500 MG/100ML* 500 MG/100 ML BAG IVPB ONE (16:00)
[2019-06-12] MEDS ORDERED: Scopolamine 1.5 mg* PATCH TRANSDERM SCH (16:00)
[2019-06-12] MEDS ORDERED: Ciprofloxacin 400MG IVPREMIX(* 400 MG/200 ML BAG IVPB ONE (16:00)
[2019-06-12] MEDS ORDERED: fentaNYL* 50 MCG/ML 2 ML VIAL (100 MCG VIAL) IV PRN (16:07)
[2019-06-12] MEDS ORDERED: Ondansetron INJ* 2 MG/ML VIAL IV PRN (16:07)
[2019-06-12] MEDS ORDERED: HYDROmorphone INJ1* 1 MG/ML SYRINGE IV PRN (16:07)
[2019-06-12] MEDS ORDERED: DiMENhydriNATE IV* 50 MG/ML VIAL IV PUSH PRN (16:07)
[2019-06-12] MEDS ORDERED: Naloxone* 0.4 MG/ML 1 ML VIAL IV PRN (16:07)
--- NOTE | 2019-06-12 16:53 | PN ---
Subjective Date of Service: 06/12/19 Interval History: c/o 8/10 abdominal pain. abd distended.small bm this am.reports vomitting a lot of bile this am. has Chrohns but denies any fam h/o chrohns, UC ,lupus or other autoimmune conditions. WBC inc despite antibiotics Past Medical History: Unchanged from Admission Objective Active Medications: Acetaminophen (Tylenol Tab*) 650 mg PO Q4H PRN PRN Reason: PAIN - MILD Dimenhydrinate (Dramamine Iv*) 25 mg IV PUSH ONCE PRN PRN Reason: NAUSEA/VOMITING Enoxaparin Sodium (Lovenox(*)) 40 mg SUBCUT Q24H [facility] Last Admin: 06/12/19 06:32 Dose: Not Given Fentanyl Citrate (Fentanyl*) 50 mcg IV Q2M PRN PRN Reason: PAIN - MODERATE Hydromorphone HCl (Dilaudid Tab*) 2 mg PO Q6H PRN PRN Reason: PAIN - SEVERE Hydromorphone HCl (Dilaudid Inj1s*) 0.5 mg IV SLOW PU Q4H PRN PRN Reason: PAIN - SEVERE Last Admin: 06/12/19 14:03 Dose: 0.5 mg Hydromorphone HCl (Dilaudid Inj1s*) 0.2 mg IV Q5M PRN PRN Reason: PAIN - SEVERE Metronidazole/Sodium Chloride (Flagyl 500 Mg Ivpb*) 500 mg in 100 mls @ 100 mls /hr IVPB 0730,1530,2330 [facility] Last Admin: 06/12/19 09:40 Dose: 100 mls/hr Ciprofloxacin/Dextrose (Cipro 400 Mg Ivpremix(*)) 400 mg in 200 mls @ 200 mls/ hr IVPB 0730,1930 [facility]; Protocol Last Admin: 06/12/19 08:23 Dose: 200 mls/hr Lactated Ringer's (Lactated Ringers 1000 Ml Bag*) 1,000 mls @ 125 mls/hr IV PER RATE [facility] Metronidazole/Sodium Chloride (Flagyl 500 Mg Ivpb*) 500 mg in 100 mls @ 100 mls /hr IVPB ONCALL ONE Stop: 06/12/19 16:59 Ciprofloxacin/Dextrose (Cipro 400 Mg Ivpremix(*)) 400 mg in 200 mls @ 200 mls/ hr IVPB [facility] Stop: 06/12/19 16:59 Naloxone HCl (Narcan*) 0.08 mg IV Q2M PRN PRN Reason: severe induced resp depression Nicotine (Nicotine Patch 21 Mg/24 Hr*) 1 patch TRANSDERM DAILY [facility] Last Admin: 06/12/19 09:48 Dose: 1 patch Nicotine Polacrilex (Nicotine Gum*) 2 mg PO Q2H PRN PRN Reason: CRAVING Last Admin: 06/12/19 08:31 Dose: 2 mg Ondansetron HCl (Zofran Inj*) 4 mg IV ONCE PRN PRN Reason: NAUSEA/VOMITING Pantoprazole Sodium (Protonix Iv*) 40 mg IV BID [facility] Pharmacy Profile Note (Nicotine Patch Removal Note*) 1 note FOLLOW UP 2100 [facility] Last Admin: 06/12/19 13:57 Dose: 1 note Pharmacy Profile Note (Scopolamine Patch Remove*) 1 note PATCH OFF Q72H [facility] Prochlorperazine Edisylate (Compazine Inj*) 5 mg IV Q6H PRN PRN Reason: NAUSEA/VOMITING Last Admin: 06/12/19 10:47 Dose: 5 mg Scopolamine (Transderm-Scop 1.5 Mg Patch*) 1 patch TRANSDERM Q72H [facility] Last Admin: 06/12/19 15:12 Dose: 1 patch Trazodone HCl (Desyrel Tab*) 50 mg PO BEDTIME PRN PRN Reason: SLEEP Last Admin: 06/11/19 21:32 Dose: 50 mg Vital Signs - 8 hr 06/12/19 06/12/19 06/12/19 10:46 11:15 11:45 Temperature 98.0 F Pulse Rate 94 Respiratory 20 20 20 Rate Blood Pressure 135/85 (mmHg) O2 Sat by Pulse 94 Oximetry 06/12/19 06/12/19 14:03 14:30 Temperature 98.1 F Pulse Rate 94 Respiratory 18 22 Rate Blood Pressure 157/98 (mmHg) O2 Sat by Pulse 94 Oximetry Oxygen Devices in Use Now: None Eyes: No Scleral Icterus Ears/Nose/Mouth/Throat: NL Teeth, Lips, Gums Neck: NL Appearance and Movements; NL JVP Respiratory: Symmetrical Chest Expansion and Respiratory Effort, Clear to Auscultation Cardiovascular: NL Sounds; No Murmurs; No JVD Abdominal: - - abdomen distended, tender diffusely, no rebound, min guarding Result Diagrams: 06/12/19 06:31 06/12/19 06:31 Additional Lab and Data: Lab Results 06/10/19 06/10/19 06/10/19 Range/Units 21:43 21:53 21:53 WBC 17.1 H (3.5-10.8) 10^3/uL RBC 4.53 (3.70-4.87) 10^6 /uL Hgb 14.3 (12.0-16.0) g/dL Hct 42 (35-47) % MCV 92 (80-97) fL MCH 32 H (27-31) pg MCHC 34 (31-36) g/dL RDW 14 (10-15) % Plt Count 292 (150-450) 10^3/uL MPV 7.4 (7.4-10.4) fL Neut % (Auto) 92.8 % Lymph % (Auto) 1.7 % [place] % (Auto) 4.9 % Eos % (Auto) 0.1 % Baso % (Auto) 0.5 % Absolute Neuts (auto) 15.8 H (1.5-7.7) 10^3/ul Absolute Lymphs (auto) 0.3 L (1.0-4.8) 10^3/ul Absolute Monos (auto) 0.8 (0-0.8) 10^3/ul Absolute Eos (auto) 0.0 (0-0.6) 10^3/ul Absolute Basos (auto) 0.1 (0-0.2) 10^3/ul Absolute Nucleated RBC 0.0 10^3/ul Nucleated RBC % 0.0 Sodium 131 L (135-145) mmol/L Potassium 3.9 (3.5-5.0) mmol/L Chloride 100 L (101-111) mmol/L Carbon Dioxide 25 (22-32) mmol/L Anion Gap 6 (2-11) mmol/L BUN 7 (6-24) mg/dL Creatinine 0.60 (0.51-0.95) mg/dL Est GFR ( Amer) 129.7 (>60) Est GFR (Non-Af Amer) 107.2 (>60) BUN/Creatinine Ratio 11.7 (8-20) Glucose 138 H (70-100) mg/dL Calcium 9.5 (8.6-10.3) mg/dL Urine Color Yellow Urine Appearance Clear Urine pH 7.0 (5-9) Ur Specific [place] 1.011 (1.010-1.030) Urine Protein Negative (Negative) Urine Ketones Trace A (Negative) Urine Blood Negative (Negative) Urine Nitrate Negative (Negative) Urine Bilirubin Negative (Negative) Urine Urobilinogen Negative (Negative) Ur Leukocyte Esterase Negative (Negative) Urine Glucose Negative (Negative) Assess/Plan/Problems-Billing Assessment: 48 y/o female admitted for terminal ileitis /sbo - Patient Problems (1) SBO (small bowel obstruction) Current Visit: Yes Status: Acute Code(s): K56.609 - UNSP INTESTNL OBST, UNSP TO PARTIAL VERSUS COMPLETE OBST SNOMED Code(s): 009600325 Comment: SBO on X ray this am with air fluid levels and symptoms suggestive h/o multiple sbo wbc despite being on antibiotics a febrile surgery had a detailed discussion with the pt this am with risks and benefits and as there is concern for vascular compromise/ischemic colitis and sbo with h/ o adhesions and multiple surgeries before, plan for OR this afternoon laparoscopy with likely need for open laparotomy. pt initially concerned about scar with laparatomy but agreed to proceed with surgery. gi dr lancaster has seen the pt in consult and also discussed case with dr mamadou escudero who is classroom monitor today NG tube attempts unsuccessful and pt wants to hold off for now (2) Colitis Current Visit: Yes Status: Acute Code(s): K52.9 - NONINFECTIVE GASTROENTERITIS AND COLITIS, UNSPECIFIED SNOMED Code(s): 46254929 Comment: ?colitis infectious/infammatory origin OR plan as above Continue antibiotics h/o partial colonoscopy 3 years ago. Further plans for colonoscopy per GI discretion as an outpt.Continue IV antibiotics. Eval post OR
[2019-06-12] MEDS ORDERED: fentaNYL* 50 MCG/ML 2 ML VIAL (100 MCG VIAL) ONE ×2 (16:58→18:36)
--- NOTE | 2019-06-12 18:33 | BRIEFOPN ---
Brief Operative/Procedure Note - Operation Details Pre-Op Diagnosis: acute abdomen Post-Op Diagnosis: same; perforated sigmoid colon Procedures: Exploratory laparotomy; lysis of adhesions; appendectomy; sigmoid colectomy with end-colostomy Surgeon(s)/Proceduralists: Min Lima. Assist: JO-ANN Valle Anesthesia: GET Estimated Blood Loss: 100 ml; fluids: 2200 ml RL Findings: as above Specimen(s)/Culture(s) Description: appendix; sigmoid colon Complications: none
[2019-06-12] MEDS ORDERED: DiMENhydriNATE IV* 50 MG/ML VIAL ONE (18:36)
[2019-06-12] MEDS ORDERED: Naloxone* 0.4 MG/ML 1 ML VIAL IV PUSH PRN (18:43)
[2019-06-12] MEDS ORDERED: HYDROmorphone PCA* 20 MG/20 ML PCA.SYRING PCA SCH (19:00)
[2019-06-12] MEDS ORDERED: HYDROmorphone PCA* 20 MG/20 ML PCA.SYRING ONE (19:07)
[2019-06-12] MEDS: Lactated Ringers 1000 ML Bag* 1,000 ML IV SCH (21:39)
[2019-06-12] MEDS: Ketorolac INJ* 30 MG/ML 1 ML VIAL IV SCH (22:20)
[2019-06-12] MEDS: Pantoprazole IV* 40 MG IV SCH (22:20)
[2019-06-13] MEDS: Ciprofloxacin 400MG IVPREMIX(* 400 MG/200 ML BAG IVPB SCH ×2 (03:58→17:17)
[2019-06-13] MEDS: Ketorolac INJ* 30 MG/ML 1 ML VIAL IV SCH ×4 (03:59→21:35)
[2019-06-13 05:59] LABS: Hematocrit 38 % (35-47); Hemoglobin 12.6 g/dL (12.0-16.0); Mean Corpuscular HGB Conc 33 g/dL (31-36); Mean Corpuscular Hemoglobin 31 pg (27-31); Mean Corpuscular Volume 94 fL (80-97); Mean Platelet Volume 8.3 fL (7.4-10.4); Platelet Count 236 10^3/uL (150-450); Red Blood Count 4.04 10^6 /uL (3.70-4.87); Red Cell Distribution Width 14 % (10-15); White Blood Count 24.7 10^3/uL (3.5-10.8)
[2019-06-13 06:02] LABS: ABS Lymphocytes 0.4 10^3/ul (1.0-4.8); ABS Monocytes 0.8 10^3/ul (0-0.8); ABS Neutrophils 23.4 10^3/ul (1.5-7.7); Lymphocyte % 1.7 %
[2019-06-13 06:11] LABS: BUN/Creatinine Ratio 11.9 (8-20); C Reactive Protein 226.38 mg/L (<8.01); Calcium 8.6 mg/dL (8.6-10.3); EGFR African American 132.2 (>60); EGFR Non-African American 109.3 (>60)
[2019-06-13] MEDS: Heparin VIAL(*) 5000 UNITS/ML VIAL (FIVE THOUSAND) SUBCUT SCH ×3 (06:15→21:34)
[2019-06-13] MEDS: Nicotine* 2MG (FRUIT FLAVOR) GUM PO PRN (06:57)
[2019-06-13] MEDS: metroNIDAZOLE IV 500 MG/100ML* 500 MG/100 ML BAG IVPB SCH ×3 (07:49→23:19)
[2019-06-13] MEDS: Lactated Ringers 1000 ML Bag* 1,000 ML IV SCH (07:53)
[2019-06-13] MEDS: Pantoprazole IV* 40 MG IV SCH ×2 (09:02→21:34)
[2019-06-13] MEDS: Nicotine PATCH 21 MG/24 HR* PATCH TRANSDERM SCH (09:34)
--- NOTE | 2019-06-13 09:34 | PN ---
Progress Note - Progress Note Date of Service: 06/13/19 SOAP: Subjective: Pt seen and examined. feeling better. walked earlier today Objective: Temp Pulse Resp BP Pulse Ox 98.7 F 73 16 125/70 94 06/13/19 08:18 06/13/19 08:18 06/13/19 08:18 06/13/19 08:18 06/13/19 08:18 Intake & Output 06/12/19 06/13/19 06/13/19 22:59 06:59 14:59 Intake Total 1600 105 297 Output Total 1050 350 Balance 550 -245 297 a and o x3 lungs cta abdo: soft/ distended/ min tenderness dressing intact, hypoactive BS ostomy pink no output ext wnl Assessment: POD 1 haley Swenson Plan: d/c martínez d/c mill hand cont NGT OOB dvt, GI proph ostomy teaching
[2019-06-13] MEDS: D5W 1/2 NS KCl 20 Meq 1000 ML* 1,000 ML IV SCH ×2 (09:37→20:03)
--- NOTE | 2019-06-13 10:05 | PN ---
Subjective Date of Service: 06/13/19 Interval History: s/p bob .doing well post op.pain 01/02 Past Medical History: Unchanged from Admission Objective Active Medications: Acetaminophen (Tylenol Tab*) 650 mg PO Q4H PRN PRN Reason: PAIN - MILD Heparin Sodium (Porcine) (Heparin Vial(*)) 5,000 units SUBCUT Q8HR [facility] Last Admin: 06/13/19 06:15 Dose: 5,000 units Hydromorphone HCl (Dilaudid Inj*) 0.5 mg IV Q2H PRN PRN Reason: PAIN - MODERATE Metronidazole/Sodium Chloride (Flagyl 500 Mg Ivpb*) 500 mg in 100 mls @ 100 mls /hr IVPB Q8H [facility] Last Admin: 06/13/19 07:49 Dose: 100 mls/hr Ciprofloxacin/Dextrose (Cipro 400 Mg Ivpremix(*)) 400 mg in 200 mls @ 200 mls/ hr IVPB 0400,1600 [facility]; Protocol Last Admin: 06/13/19 03:58 Dose: 200 mls/hr Potassium Chloride/Dextrose (D5w 1/2 Ns Kcl 20 Meq 1000 Ml*) 1,000 mls @ 125 mls/hr IV PER RATE [facility] Last Admin: 06/13/19 09:37 Dose: 125 mls/hr Ketorolac Tromethamine (Toradol Inj*) 30 mg IV Q6H [facility] Stop: 06/14/19 16:01 Last Admin: 06/13/19 03:59 Dose: 30 mg Ketorolac Tromethamine (Toradol Inj*) 30 mg IV Q6H PRN PRN Reason: PAIN - MODERATE Naloxone HCl (Narcan*) 0.08 mg IV PUSH .Q2MIN PRN PRN Reason: OVERSEDATION Nicotine (Nicotine Patch 21 Mg/24 Hr*) 1 patch TRANSDERM DAILY [facility] Last Admin: 06/13/19 09:34 Dose: Not Given Nicotine Polacrilex (Nicotine Gum*) 2 mg PO Q2H PRN PRN Reason: CRAVING Last Admin: 06/13/19 06:57 Dose: 2 mg Ondansetron HCl (Zofran Inj*) 4 mg IV Q6H PRN PRN Reason: NAUSEA/VOMITING Pantoprazole Sodium (Protonix Iv*) 40 mg IV BID [facility] Last Admin: 06/13/19 09:02 Dose: 40 mg Pharmacy Profile Note (Nicotine Patch Removal Note*) 1 note FOLLOW UP 2100 ESEQU[facility] Last Admin: 06/12/19 13:57 Dose: 1 note Pharmacy Profile Note (Scopolamine Patch Remove*) 1 note PATCH OFF Q72H [facility] Prochlorperazine Edisylate (Compazine Inj*) 5 mg IV Q6H PRN PRN Reason: NAUSEA/VOMITING Last Admin: 06/12/19 10:47 Dose: 5 mg Scopolamine (Transderm-Scop 1.5 Mg Patch*) 1 patch TRANSDERM Q72H [facility] Vital Signs - 8 hr 06/13/19 06/13/19 06/13/19 02:10 02:21 04:04 Temperature 99.4 F Pulse Rate 66 Respiratory 16 20 16 Rate Blood Pressure 117/71 (mmHg) O2 Sat by Pulse 96 95 95 Oximetry 06/13/19 06/13/19 06/13/19 06:08 07:45 08:18 Temperature 98.7 F Pulse Rate 73 Respiratory 18 18 16 Rate Blood Pressure 125/70 (mmHg) O2 Sat by Pulse 93 93 94 Oximetry Oxygen Devices in Use Now: Nasal Cannula Eyes: No Scleral Icterus Ears/Nose/Mouth/Throat: NL Teeth, Lips, Gums Neck: NL Appearance and Movements; NL JVP Respiratory: Symmetrical Chest Expansion and Respiratory Effort Cardiovascular: NL Sounds; No Murmurs; No JVD Abdominal: - - min distention, appropriately tender, no rebound no guarding, ostomy in -place Extremities: No Edema Neurological: Alert and Oriented x 3 Result Diagrams: 06/13/19 05:27 06/13/19 05:27 Additional Lab and Data: Lab Results 06/10/19 06/10/19 06/10/19 Range/Units 21:43 21:53 21:53 WBC 17.1 H (3.5-10.8) 10^3/uL RBC 4.53 (3.70-4.87) 10^6 /uL Hgb 14.3 (12.0-16.0) g/dL Hct 42 (35-47) % MCV 92 (80-97) fL MCH 32 H (27-31) pg MCHC 34 (31-36) g/dL RDW 14 (10-15) % Plt Count 292 (150-450) 10^3/uL MPV 7.4 (7.4-10.4) fL Neut % (Auto) 92.8 % Lymph % (Auto) 1.7 % [place] % (Auto) 4.9 % Eos % (Auto) 0.1 % Baso % (Auto) 0.5 % Absolute Neuts (auto) 15.8 H (1.5-7.7) 10^3/ul Absolute Lymphs (auto) 0.3 L (1.0-4.8) 10^3/ul Absolute Monos (auto) 0.8 (0-0.8) 10^3/ul Absolute Eos (auto) 0.0 (0-0.6) 10^3/ul Absolute Basos (auto) 0.1 (0-0.2) 10^3/ul Absolute Nucleated RBC 0.0 10^3/ul Nucleated RBC % 0.0 Sodium 131 L (135-145) mmol/L Potassium 3.9 (3.5-5.0) mmol/L Chloride 100 L (101-111) mmol/L Carbon Dioxide 25 (22-32) mmol/L Anion Gap 6 (2-11) mmol/L BUN 7 (6-24) mg/dL Creatinine 0.60 (0.51-0.95) mg/dL Est GFR ( Amer) 129.7 (>60) Est GFR (Non-Af Amer) 107.2 (>60) BUN/Creatinine Ratio 11.7 (8-20) Glucose 138 H (70-100) mg/dL Calcium 9.5 (8.6-10.3) mg/dL Urine Color Yellow Urine Appearance Clear Urine pH 7.0 (5-9) Ur Specific [place] 1.011 (1.010-1.030) Urine Protein Negative (Negative) Urine Ketones Trace A (Negative) Urine Blood Negative (Negative) Urine Nitrate Negative (Negative) Urine Bilirubin Negative (Negative) Urine Urobilinogen Negative (Negative) Ur Leukocyte Esterase Negative (Negative) Urine Glucose Negative (Negative) Assess/Plan/Problems-Billing Assessment: 48 y/o female admitted /sbo - Patient Problems (1) SBO (small bowel obstruction) Current Visit: Yes Status: Acute Code(s): K56.609 - UNSP INTESTNL OBST, UNSP TO PARTIAL VERSUS COMPLETE OBST SNOMED Code(s): 293394833 Comment: SBO on X ray this am with air fluid levels and symptoms suggestive h/o multiple sbo wbc despite being on antibiotics a febrile surgery had a detailed discussion with the pt yesterday and pt ewndy tto the OR for acute abdomen Pl see op note for details.small Sigmoid perforation noted s/p appendectomy and colectomy/rojas procedure doing well post op.pt feels significantly better compared to yesterday (2) Colitis Current Visit: Yes Status: Acute Code(s): K52.9 - NONINFECTIVE GASTROENTERITIS AND COLITIS, UNSPECIFIED SNOMED Code(s): 25796731 Comment: continue antibiotics h/o partial colonoscopy 3 years ago. Further plans for colonoscopy per GI discretion as an outpt. on kassi damon
[2019-06-13] MEDS: Nicotine PATCH 14 MG/24 HR* PATCH TRANSDERM SCH (10:59)
[2019-06-13] MEDS: HYDROmorphone INJ* 0.5 MG/0.5 ML SYRINGE IV PRN ×4 (11:48→23:18)
[2019-06-13] MEDS: Nicotine Patch Removal NOTE FOLLOW UP SCH (21:46)
[2019-06-14] MEDS: HYDROmorphone INJ* 0.5 MG/0.5 ML SYRINGE IV PRN ×7 (04:05→20:43)
[2019-06-14] MEDS: Ketorolac INJ* 30 MG/ML 1 ML VIAL IV SCH ×3 (04:09→15:39)
[2019-06-14] MEDS: Ciprofloxacin 400MG IVPREMIX(* 400 MG/200 ML BAG IVPB SCH ×3 (04:11→17:27)
[2019-06-14] MEDS: Heparin VIAL(*) 5000 UNITS/ML VIAL (FIVE THOUSAND) SUBCUT SCH ×3 (06:00→21:56)
[2019-06-14 06:02] LABS: ABS Eosinophils 0.2 10^3/ul (0-0.6); ABS Lymphocytes 0.9 10^3/ul (1.0-4.8); ABS Monocytes 1.4 10^3/ul (0-0.8); ABS Neutrophils 7.7 10^3/ul (1.5-7.7); Eosinophil % 1.8 %; Hematocrit 34 % (35-47); Hemoglobin 11.7 g/dL (12.0-16.0); Lymphocyte % 8.7 %; Mean Corpuscular HGB Conc 34 g/dL (31-36); Mean Corpuscular Hemoglobin 32 pg (27-31); Mean Corpuscular Volume 94 fL (80-97); Mean Platelet Volume 8.1 fL (7.4-10.4); Platelet Count 240 10^3/uL (150-450); Red Blood Count 3.67 10^6 /uL (3.70-4.87); Red Cell Distribution Width 14 % (10-15); White Blood Count 10.1 10^3/uL (3.5-10.8)
[2019-06-14 06:10] LABS: BUN/Creatinine Ratio 12.1 (8-20); Calcium 8.3 mg/dL (8.6-10.3); EGFR African American 134.8 (>60); EGFR Non-African American 111.4 (>60); Magnesium 1.6 mg/dL (1.9-2.7); Phosphorus 2.4 mg/dL (2.5-5.0); Potassium 3.6 mmol/L (3.5-5.0)
[2019-06-14] MEDS: D5W 1/2 NS KCl 20 Meq 1000 ML* 1,000 ML IV SCH (06:49)
[2019-06-14] MEDS: metroNIDAZOLE IV 500 MG/100ML* 500 MG/100 ML BAG IVPB SCH ×3 (07:17→23:31)
[2019-06-14] MEDS: Nicotine PATCH 14 MG/24 HR* PATCH TRANSDERM SCH (08:18)
[2019-06-14] MEDS: Pantoprazole IV* 40 MG IV SCH ×2 (08:19→20:49)
[2019-06-14] MEDS ORDERED: Magnesium Sulfate 1 GM IV* 1 GM/100 ML BAG IV ONE (12:04)
--- NOTE | 2019-06-14 12:11 | PN ---
Progress Note - Progress Note Date of Service: 06/14/19 SOAP: Subjective: Pt seen and examined.Continues to feel well Objective: Temp Pulse Resp BP Pulse Ox 98.5 F 74 18 138/87 93 06/14/19 08:20 06/14/19 08:20 06/14/19 11:14 06/14/19 08:20 06/14/19 08:20 a and o x3 lungs cta abdo: soft/ distended/ incisional tenderness dressing removed, no cellulitis ostomy pink, serous output, no gas ext wnl labs noted Assessment: POD 2 haley Swenson Plan: NGT removed OOB dvt, GI proph SACMA ot cover me this weekend Pathology pending
[2019-06-14] MEDS ORDERED: Potassium Phosphate IV* 15 MMOLE in NS 0.9% 250 ML* 250 ML IVPB ONE (12:30)
--- NOTE | 2019-06-14 14:33 | PN ---
Subjective Date of Service: 06/14/19 Interval History: Reports feeling better.Denies complaints.Wants to eat Past Medical History: Unchanged from Admission Objective Active Medications: Acetaminophen (Tylenol Tab*) 650 mg PO Q4H PRN PRN Reason: PAIN - MILD Heparin Sodium (Porcine) (Heparin Vial(*)) 5,000 units SUBCUT Q8HR [facility] Last Admin: 06/14/19 14:00 Dose: 5,000 units Hydromorphone HCl (Dilaudid Inj*) 0.5 mg IV Q2H PRN PRN Reason: PAIN - MODERATE Last Admin: 06/14/19 12:55 Dose: 0.5 mg Metronidazole/Sodium Chloride (Flagyl 500 Mg Ivpb*) 500 mg in 100 mls @ 100 mls /hr IVPB Q8H [facility] Last Admin: 06/14/19 07:17 Dose: 100 mls/hr Ciprofloxacin/Dextrose (Cipro 400 Mg Ivpremix(*)) 400 mg in 200 mls @ 200 mls/ hr IVPB 0400,1600 [facility]; Protocol Last Admin: 06/14/19 04:11 Dose: 200 mls/hr Potassium Chloride/Dextrose (D5w 1/2 Ns Kcl 20 Meq 1000 Ml*) 1,000 mls @ 125 mls/hr IV PER RATE [facility] Last Admin: 06/14/19 06:49 Dose: 125 mls/hr Potassium Phosphate 15 mmole/ (Sodium Chloride) 255 mls @ 42 mls/hr IVPB ONCE ONE Stop: 06/14/19 18:34 Last Admin: 06/14/19 14:01 Dose: 42 mls/hr Ketorolac Tromethamine (Toradol Inj*) 30 mg IV Q6H [facility] Stop: 06/14/19 16:01 Last Admin: 06/14/19 09:41 Dose: 30 mg Ketorolac Tromethamine (Toradol Inj*) 30 mg IV Q6H PRN PRN Reason: PAIN - MODERATE Naloxone HCl (Narcan*) 0.08 mg IV PUSH .Q2MIN PRN PRN Reason: OVERSEDATION Nicotine (Nicotine Patch 14 Mg/24 Hr*) 1 patch TRANSDERM DAILY [facility] Last Admin: 06/14/19 08:18 Dose: 1 patch Nicotine Polacrilex (Nicotine Gum*) 2 mg PO Q2H PRN PRN Reason: CRAVING Last Admin: 06/13/19 06:57 Dose: 2 mg Ondansetron HCl (Zofran Inj*) 4 mg IV Q6H PRN PRN Reason: NAUSEA/VOMITING Pantoprazole Sodium (Protonix Iv*) 40 mg IV BID [facility] Last Admin: 06/14/19 08:19 Dose: 40 mg Pharmacy Profile Note (Nicotine Patch Removal Note*) 1 note FOLLOW UP 2100 [facility] Last Admin: 06/13/19 21:46 Dose: 1 note Pharmacy Profile Note (Scopolamine Patch Remove*) 1 note PATCH OFF Q72H [facility] Prochlorperazine Edisylate (Compazine Inj*) 5 mg IV Q6H PRN PRN Reason: NAUSEA/VOMITING Last Admin: 06/12/19 10:47 Dose: 5 mg Scopolamine (Transderm-Scop 1.5 Mg Patch*) 1 patch TRANSDERM Q72H [facility] Vital Signs - 8 hr 06/14/19 06/14/19 06/14/19 07:22 08:20 09:40 Temperature 98.5 F Pulse Rate 74 Respiratory 16 16 18 Rate Blood Pressure 138/87 (mmHg) O2 Sat by Pulse 93 Oximetry 06/14/19 06/14/19 06/14/19 11:14 12:55 14:04 Temperature Pulse Rate Respiratory 18 16 16 Rate Blood Pressure (mmHg) O2 Sat by Pulse Oximetry Oxygen Devices in Use Now: Nasal Cannula Eyes: No Scleral Icterus Ears/Nose/Mouth/Throat: NL Teeth, Lips, Gums Neck: NL Appearance and Movements; NL JVP Respiratory: Symmetrical Chest Expansion and Respiratory Effort, Clear to Auscultation Cardiovascular: NL Sounds; No Murmurs; No JVD Abdominal: NL Sounds; No Tenderness; No Distention, - - appropriately tender less distended no rebound no guarding Extremities: No Edema Neurological: Alert and Oriented x 3 Result Diagrams: 06/14/19 05:16 06/14/19 05:16 Additional Lab and Data: Lab Results 06/10/19 06/10/19 06/10/19 Range/Units 21:43 21:53 21:53 WBC 17.1 H (3.5-10.8) 10^3/uL RBC 4.53 (3.70-4.87) 10^6 /uL Hgb 14.3 (12.0-16.0) g/dL Hct 42 (35-47) % MCV 92 (80-97) fL MCH 32 H (27-31) pg MCHC 34 (31-36) g/dL RDW 14 (10-15) % Plt Count 292 (150-450) 10^3/uL MPV 7.4 (7.4-10.4) fL Neut % (Auto) 92.8 % Lymph % (Auto) 1.7 % [place] % (Auto) 4.9 % Eos % (Auto) 0.1 % Baso % (Auto) 0.5 % Absolute Neuts (auto) 15.8 H (1.5-7.7) 10^3/ul Absolute Lymphs (auto) 0.3 L (1.0-4.8) 10^3/ul Absolute Monos (auto) 0.8 (0-0.8) 10^3/ul Absolute Eos (auto) 0.0 (0-0.6) 10^3/ul Absolute Basos (auto) 0.1 (0-0.2) 10^3/ul Absolute Nucleated RBC 0.0 10^3/ul Nucleated RBC % 0.0 Sodium 131 L (135-145) mmol/L Potassium 3.9 (3.5-5.0) mmol/L Chloride 100 L (101-111) mmol/L Carbon Dioxide 25 (22-32) mmol/L Anion Gap 6 (2-11) mmol/L BUN 7 (6-24) mg/dL Creatinine 0.60 (0.51-0.95) mg/dL Est GFR ( Amer) 129.7 (>60) Est GFR (Non-Af Amer) 107.2 (>60) BUN/Creatinine Ratio 11.7 (8-20) Glucose 138 H (70-100) mg/dL Calcium 9.5 (8.6-10.3) mg/dL Urine Color Yellow Urine Appearance Clear Urine pH 7.0 (5-9) Ur Specific [place] 1.011 (1.010-1.030) Urine Protein Negative (Negative) Urine Ketones Trace A (Negative) Urine Blood Negative (Negative) Urine Nitrate Negative (Negative) Urine Bilirubin Negative (Negative) Urine Urobilinogen Negative (Negative) Ur Leukocyte Esterase Negative (Negative) Urine Glucose Negative (Negative) Assess/Plan/Problems-Billing Assessment: 48 y/o female admitted /sbo - Patient Problems (1) SBO (small bowel obstruction) Current Visit: Yes Status: Acute Code(s): K56.609 - UNSP INTESTNL OBST, UNSP TO PARTIAL VERSUS COMPLETE OBST SNOMED Code(s): 153221064 Comment: acute abdomen h/o multiple sbo s/p surgery small Sigmoid perforation noted s/p appendectomy and colectomy/rojas procedure doing well post op.pt feels significantly better (2) Colitis Current Visit: Yes Status: Acute Code(s): K52.9 - NONINFECTIVE GASTROENTERITIS AND COLITIS, UNSPECIFIED SNOMED Code(s): 88897227 Comment: continue antibiotics h/o partial colonoscopy 3 years ago. on cipro, flagyl (3) Hypomagnesemia Current Visit: Yes Status: Acute Code(s): E83.42 - HYPOMAGNESEMIA SNOMED Code(s): 381080410 Comment: replaced (4) Hypokalemia Current Visit: Yes Status: Acute Code(s): E87.6 - HYPOKALEMIA SNOMED Code( s): 02169426 Comment: replaced (5) Hypophosphatemia Current Visit: Yes Status: Acute Code(s): E83.39 - OTHER DISORDERS OF PHOSPHORUS METABOLISM SNOMED Code(s): 7083563 Comment: replaced
[2019-06-14] MEDS: Ondansetron INJ* 2 MG/ML VIAL IV PRN (18:35)
[2019-06-14] MEDS: PROCHLORPERAZINE INJ 5 MG/ML 2 ML VIAL IV PRN (20:48)
[2019-06-14] MEDS: Nicotine Patch Removal NOTE FOLLOW UP SCH (21:57)
[2019-06-15] MEDS: D5W 1/2 NS KCl 20 Meq 1000 ML* 1,000 ML IV SCH ×2 (00:24→10:54)
[2019-06-15] MEDS: Ondansetron INJ* 2 MG/ML VIAL IV PRN ×3 (02:41→22:07)
[2019-06-15] MEDS: HYDROmorphone INJ* 0.5 MG/0.5 ML SYRINGE IV PRN ×5 (02:43→22:06)
[2019-06-15] MEDS: Ketorolac INJ* 30 MG/ML 1 ML VIAL IV PRN ×3 (03:41→19:05)
[2019-06-15] MEDS: Ciprofloxacin 400MG IVPREMIX(* 400 MG/200 ML BAG IVPB SCH ×2 (03:47→17:46)
[2019-06-15] MEDS: Heparin VIAL(*) 5000 UNITS/ML VIAL (FIVE THOUSAND) SUBCUT SCH ×3 (05:42→22:20)
[2019-06-15 06:37] LABS: ABS Eosinophils 0.2 10^3/ul (0-0.6); ABS Lymphocytes 0.7 10^3/ul (1.0-4.8); ABS Monocytes 1.4 10^3/ul (0-0.8); ABS Neutrophils 6.6 10^3/ul (1.5-7.7); Eosinophil % 2.7 %; Hematocrit 32 % (35-47); Lymphocyte % 8.1 %; Mean Corpuscular HGB Conc 35 g/dL (31-36); Mean Corpuscular Hemoglobin 32 pg (27-31); Mean Corpuscular Volume 92 fL (80-97); Mean Platelet Volume 7.8 fL (7.4-10.4); Platelet Count 263 10^3/uL (150-450); Red Blood Count 3.45 10^6 /uL (3.70-4.87); Red Cell Distribution Width 13 % (10-15); White Blood Count 9.1 10^3/uL (3.5-10.8)
[2019-06-15 06:47] LABS: BUN/Creatinine Ratio 6.4 (8-20); Calcium 8.2 mg/dL (8.6-10.3); EGFR African American 171.9 (>60); Potassium 3.6 mmol/L (3.5-5.0)
[2019-06-15] MEDS: metroNIDAZOLE IV 500 MG/100ML* 500 MG/100 ML BAG IVPB SCH ×3 (08:05→23:49)
[2019-06-15] MEDS: Nicotine PATCH 14 MG/24 HR* PATCH TRANSDERM SCH (08:07)
[2019-06-15] MEDS: Pantoprazole IV* 40 MG IV SCH ×2 (08:16→22:13)
--- NOTE | 2019-06-15 10:42 | PN ---
Progress Note - Progress Note Date of Service: 06/15/19 SOAP: Subjective: []hungry! no flatus Objective: [] Laboratory Last Values WBC 9.1 10^3/uL (3.5-10.8) 06/15/19 06:19 RBC 3.45 10^6 /uL (3.70-4.87) L 06/15/19 06:19 Hgb 11.0 g/dL (12.0-16.0) L 06/15/19 06:19 Hct 32 % (35-47) L 06/15/19 06:19 MCV 92 fL (80-97) 06/15/19 06:19 MCH 32 pg (27-31) H 06/15/19 06:19 MCHC 35 g/dL (31-36) 06/15/19 06:19 RDW 13 % (10-15) 06/15/19 06:19 Plt Count 263 10^3/uL (150-450) 06/15/19 06:19 MPV 7.8 fL (7.4-10.4) 06/15/19 06:19 Neut % (Auto) 73.4 % 06/15/19 06:19 Lymph % (Auto) 8.1 % 06/15/19 06:19 [place] % (Auto) 15.5 % 06/15/19 06:19 Eos % (Auto) 2.7 % 06/15/19 06:19 Baso % (Auto) 0.3 % 06/15/19 06:19 Absolute Neuts (auto) 6.6 10^3/ul (1.5-7.7) 06/15/19 06:19 Absolute Lymphs (auto) 0.7 10^3/ul (1.0-4.8) L 06/15/19 06:19 Absolute Monos (auto) 1.4 10^3/ul (0-0.8) H 06/15/19 06:19 Absolute Eos (auto) 0.2 10^3/ul (0-0.6) 06/15/19 06:19 Absolute Basos (auto) 0.0 10^3/ul (0-0.2) 06/15/19 06:19 Absolute Nucleated RBC 0.0 10^3/ul 06/15/19 06:19 Nucleated RBC % 0.0 06/15/19 06:19 Sodium 135 mmol/L (135-145) 06/15/19 06:19 Potassium 3.6 mmol/L (3.5-5.0) 06/15/19 06:19 Chloride 105 mmol/L (101-111) 06/15/19 06:19 Carbon Dioxide 26 mmol/L (22-32) 06/15/19 06:19 Anion Gap 4 mmol/L (2-11) 06/15/19 06:19 BUN 3 mg/dL (6-24) L 06/15/19 06:19 Creatinine 0.47 mg/dL (0.51-0.95) L 06/15/19 06:19 Est GFR ( Amer) 171.9 (>60) 06/15/19 06:19 Est GFR (Non-Af Amer) 142.0 (>60) 06/15/19 06:19 BUN/Creatinine Ratio 6.4 (8-20) L 06/15/19 06:19 Glucose 112 mg/dL (70-100) H 06/15/19 06:19 Lactic Acid 1.2 mmol/L (0.5-2.0) 06/13/19 05:27 Calcium 8.2 mg/dL (8.6-10.3) L 06/15/19 06:19 Phosphorus 2.4 mg/dL (2.5-5.0) L 06/14/19 05:16 Magnesium 1.6 mg/dL (1.9-2.7) L 06/14/19 05:16 Total Bilirubin 0.60 mg/dL (0.2-1.0) 06/10/19 21:53 Direct Bilirubin 0.10 mg/dL (0.03-0.18) 06/10/19 21:53 Indirect Bilirubin 0.5 mg/dL (0.3-1.0) 06/10/19 21:53 AST 15 U/L (13-39) 06/10/19 21:53 ALT 11 U/L (7-52) 06/10/19 21:53 Alkaline Phosphatase 49 U/L (34-104) 06/10/19 21:53 C-Reactive Protein 226.38 mg/L (<8.01) H 06/13/19 05:27 Total Protein 7.3 g/dL (6.4-8.9) 06/10/19 21:53 Albumin 4.6 g/dL (3.2-5.2) 06/10/19 21:53 Globulin 2.7 g/dL (2-4) 06/10/19 21:53 Albumin/Globulin Ratio 1.7 (1-3) 06/10/19 21:53 Lipase 11 U/L (11.0-82.0) 06/10/19 21:53 Urine Color Yellow 06/10/19 21:43 Urine Appearance Clear 06/10/19 21:43 Urine pH 7.0 (5-9) 06/10/19 21:43 Ur Specific [place] 1.011 (1.010-1.030) 06/10/19 21:43 Urine Protein Negative (Negative) 06/10/19 21:43 Urine Ketones Trace (Negative) A 06/10/19 21:43 Urine Blood Negative (Negative) 06/10/19 21:43 Urine Nitrate Negative (Negative) 06/10/19 21:43 Urine Bilirubin Negative (Negative) 06/10/19 21:43 Urine Urobilinogen Negative (Negative) 06/10/19 21:43 Ur Leukocyte Esterase Negative (Negative) 06/10/19 21:43 Urine Glucose Negative (Negative) 06/10/19 21:43 Temp Pulse Resp BP Pulse Ox 98.2 F 80 16 135/81 96 06/15/19 07:15 06/15/19 07:15 06/15/19 07:15 06/15/19 07:15 06/15/19 07:15 Assessment: []stable, improving Plan: []clear liquid diet
--- NOTE | 2019-06-15 12:34 | PN ---
Subjective Date of Service: 06/15/19 Interval History: denies any complaints.not passing gas yet.wants to eat.very hungry Past Medical History: Unchanged from Admission Objective Active Medications: Acetaminophen (Tylenol Tab*) 650 mg PO Q4H PRN PRN Reason: PAIN - MILD Heparin Sodium (Porcine) (Heparin Vial(*)) 5,000 units SUBCUT Q8HR [facility] Last Admin: 06/15/19 05:42 Dose: 5,000 units Hydromorphone HCl (Dilaudid Inj*) 0.5 mg IV Q2H PRN PRN Reason: PAIN - MODERATE Last Admin: 06/15/19 11:02 Dose: 0.5 mg Metronidazole/Sodium Chloride (Flagyl 500 Mg Ivpb*) 500 mg in 100 mls @ 100 mls /hr IVPB Q8H [facility] Last Admin: 06/15/19 08:05 Dose: 100 mls/hr Ciprofloxacin/Dextrose (Cipro 400 Mg Ivpremix(*)) 400 mg in 200 mls @ 200 mls/ hr IVPB 0400,1600 [facility]; Protocol Last Admin: 06/15/19 03:47 Dose: 200 mls/hr Potassium Chloride/Dextrose (D5w 1/2 Ns Kcl 20 Meq 1000 Ml*) 1,000 mls @ 125 mls/hr IV PER RATE [facility] Last Admin: 06/15/19 10:54 Dose: 125 mls/hr Ketorolac Tromethamine (Toradol Inj*) 30 mg IV Q6H PRN PRN Reason: PAIN - MODERATE Last Admin: 06/15/19 10:49 Dose: 30 mg Naloxone HCl (Narcan*) 0.08 mg IV PUSH .Q2MIN PRN PRN Reason: OVERSEDATION Nicotine (Nicotine Patch 14 Mg/24 Hr*) 1 patch TRANSDERM DAILY [facility] Last Admin: 06/15/19 08:07 Dose: 1 patch Nicotine Polacrilex (Nicotine Gum*) 2 mg PO Q2H PRN PRN Reason: CRAVING Last Admin: 06/13/19 06:57 Dose: 2 mg Ondansetron HCl (Zofran Inj*) 4 mg IV Q6H PRN PRN Reason: NAUSEA/VOMITING Last Admin: 06/15/19 02:41 Dose: 4 mg Pantoprazole Sodium (Protonix Iv*) 40 mg IV BID [facility] Last Admin: 06/15/19 08:16 Dose: 40 mg Pharmacy Profile Note (Nicotine Patch Removal Note*) 1 note FOLLOW UP 2100 ESEQUIEL Last Admin: 06/14/19 21:57 Dose: 1 note Pharmacy Profile Note (Scopolamine Patch Remove*) 1 note PATCH OFF Q72H [facility] Prochlorperazine Edisylate (Compazine Inj*) 5 mg IV Q6H PRN PRN Reason: NAUSEA/VOMITING Last Admin: 06/14/19 20:48 Dose: 5 mg Scopolamine (Transderm-Scop 1.5 Mg Patch*) 1 patch TRANSDERM Q72H [facility] Vital Signs - 8 hr 06/15/19 06/15/19 06/15/19 05:41 07:15 11:02 Temperature 98.2 F Pulse Rate 80 Respiratory 16 16 18 Rate Blood Pressure 135/81 (mmHg) O2 Sat by Pulse 96 Oximetry 06/15/19 11:23 Temperature 97.9 F Pulse Rate 94 Respiratory 19 Rate Blood Pressure 171/96 (mmHg) O2 Sat by Pulse 91 Oximetry Oxygen Devices in Use Now: None Eyes: No Scleral Icterus Ears/Nose/Mouth/Throat: NL Teeth, Lips, Gums Neck: NL Appearance and Movements; NL JVP Respiratory: Symmetrical Chest Expansion and Respiratory Effort, Clear to Auscultation Cardiovascular: NL Sounds; No Murmurs; No JVD, RRR Abdominal: - - min distended,appropriately tender,ostomy in place, hypoactive BS Extremities: No Edema Neurological: Alert and Oriented x 3 Result Diagrams: 06/15/19 06:19 06/15/19 06:19 Additional Lab and Data: Lab Results 06/10/19 06/10/19 06/10/19 Range/Units 21:43 21:53 21:53 WBC 17.1 H (3.5-10.8) 10^3/uL RBC 4.53 (3.70-4.87) 10^6 /uL Hgb 14.3 (12.0-16.0) g/dL Hct 42 (35-47) % MCV 92 (80-97) fL MCH 32 H (27-31) pg MCHC 34 (31-36) g/dL RDW 14 (10-15) % Plt Count 292 (150-450) 10^3/uL MPV 7.4 (7.4-10.4) fL Neut % (Auto) 92.8 % Lymph % (Auto) 1.7 % [place] % (Auto) 4.9 % Eos % (Auto) 0.1 % Baso % (Auto) 0.5 % Absolute Neuts (auto) 15.8 H (1.5-7.7) 10^3/ul Absolute Lymphs (auto) 0.3 L (1.0-4.8) 10^3/ul Absolute Monos (auto) 0.8 (0-0.8) 10^3/ul Absolute Eos (auto) 0.0 (0-0.6) 10^3/ul Absolute Basos (auto) 0.1 (0-0.2) 10^3/ul Absolute Nucleated RBC 0.0 10^3/ul Nucleated RBC % 0.0 Sodium 131 L (135-145) mmol/L Potassium 3.9 (3.5-5.0) mmol/L Chloride 100 L (101-111) mmol/L Carbon Dioxide 25 (22-32) mmol/L Anion Gap 6 (2-11) mmol/L BUN 7 (6-24) mg/dL Creatinine 0.60 (0.51-0.95) mg/dL Est GFR ( Amer) 129.7 (>60) Est GFR (Non-Af Amer) 107.2 (>60) BUN/Creatinine Ratio 11.7 (8-20) Glucose 138 H (70-100) mg/dL Calcium 9.5 (8.6-10.3) mg/dL Urine Color Yellow Urine Appearance Clear Urine pH 7.0 (5-9) Ur Specific [place] 1.011 (1.010-1.030) Urine Protein Negative (Negative) Urine Ketones Trace A (Negative) Urine Blood Negative (Negative) Urine Nitrate Negative (Negative) Urine Bilirubin Negative (Negative) Urine Urobilinogen Negative (Negative) Ur Leukocyte Esterase Negative (Negative) Urine Glucose Negative (Negative) Assess/Plan/Problems-Billing Assessment: 48 y/o female admitted /sbo - Patient Problems (1) SBO (small bowel obstruction) Current Visit: Yes Status: Acute Code(s): K56.609 - UNSP INTESTNL OBST, UNSP TO PARTIAL VERSUS COMPLETE OBST SNOMED Code(s): 095035055 Comment: acute abdomen h/o multiple sbo s/p surgery small Sigmoid perforation noted s/p appendectomy and colectomy/rojas procedure doing well post op.pt feels better white count improved diet advanced to clear liq (2) Colitis Current Visit: Yes Status: Acute Code(s): K52.9 - NONINFECTIVE GASTROENTERITIS AND COLITIS, UNSPECIFIED SNOMED Code(s): 12874034 Comment: continue antibiotics h/o partial colonoscopy 3 years ago. on cipro, flagyl wbc decreased from 24 to normal range Consider stopping antibiotics after total course of 5 to 7 days (3) Hypomagnesemia Current Visit: Yes Status: Acute Code(s): E83.42 - HYPOMAGNESEMIA SNOMED Code(s): 017953159 Comment: replaced recheck in am (4) Hypokalemia Current Visit: Yes Status: Acute Code(s): E87.6 - HYPOKALEMIA SNOMED Code( s): 97090938 Comment: replaced (5) Hypophosphatemia Current Visit: Yes Status: Acute Code(s): E83.39 - OTHER DISORDERS OF PHOSPHORUS METABOLISM SNOMED Code(s): 1563055 Comment: replaced recheck in am
[2019-06-15] MEDS ORDERED: Scopolamine PATCH Remove* 1 NOTE MISC PATCH OFF SCH ×2 (15:00→16:00)
[2019-06-15] MEDS ORDERED: Scopolamine 1.5 mg* PATCH TRANSDERM SCH (15:00)
[2019-06-15] MEDS: traZODone TAB* 50 MG TAB PO PRN (22:22)
[2019-06-15] MEDS: Nicotine Patch Removal NOTE FOLLOW UP SCH (23:53)
[2019-06-16] MEDS: HYDROmorphone INJ* 0.5 MG/0.5 ML SYRINGE IV PRN ×3 (03:11→23:49)
[2019-06-16] MEDS: PROCHLORPERAZINE INJ 5 MG/ML 2 ML VIAL IV PRN (03:13)
[2019-06-16] MEDS: Ciprofloxacin 400MG IVPREMIX(* 400 MG/200 ML BAG IVPB SCH (04:38)
[2019-06-16] MEDS: Heparin VIAL(*) 5000 UNITS/ML VIAL (FIVE THOUSAND) SUBCUT SCH (05:54)
[2019-06-16 06:24] LABS: CO2 Carbon Dioxide 22 mmol/L (22-32); Calcium 8.4 mg/dL (8.6-10.3); Chloride 104 mmol/L (101-111); Magnesium 1.6 mg/dL (1.9-2.7); Sodium 134 mmol/L (135-145)
[2019-06-16 06:29] LABS: BUN/Creatinine Ratio 5.7 (8-20); Blood Urea Nitrogen 3 mg/dL (6-24); EGFR African American 149.6 (>60); EGFR Non-African American 123.6 (>60); Glucose 116 mg/dL (70-100); Phosphorus 4.3 mg/dL (2.5-5.0)
[2019-06-16 07:35] LABS: Anion Gap 8 mmol/L (2-11)
[2019-06-16 07:48] LABS: ABS Eosinophils 0.2 10^3/ul (0-0.6); ABS Lymphocytes 0.9 10^3/ul (1.0-4.8); ABS Monocytes 1.5 10^3/ul (0-0.8); ABS Neutrophils 5.2 10^3/ul (1.5-7.7); Eosinophil % 2.8 %; Hematocrit 34 % (35-47); Hemoglobin 11.8 g/dL (12.0-16.0); Lymphocyte % 11.9 %; Mean Corpuscular HGB Conc 35 g/dL (31-36); Mean Corpuscular Hemoglobin 32 pg (27-31); Mean Corpuscular Volume 93 fL (80-97); Mean Platelet Volume 8.5 fL (7.4-10.4); Nucleated Red Blood Cells % 0.1; Platelet Count 302 10^3/uL (150-450); Red Blood Count 3.65 10^6 /uL (3.70-4.87); Red Cell Distribution Width 14 % (10-15); White Blood Count 7.9 10^3/uL (3.5-10.8)
[2019-06-16] MEDS: metroNIDAZOLE IV 500 MG/100ML* 500 MG/100 ML BAG IVPB SCH (07:55)
--- NOTE | 2019-06-16 07:59 | PN ---
Progress Note - Progress Note Date of Service: 06/16/19 SOAP: Subjective: [] no flatus, wants to eat Objective: []sitting in chair in street clothes stoma viable, no air or stool in bag incision CDI Temp Pulse Resp BP Pulse Ox 98.1 F 77 16 148/81 95 06/16/19 07:38 06/16/19 07:38 06/16/19 07:38 06/16/19 07:38 06/16/19 07:38 Laboratory Last Values WBC 7.9 10^3/uL (3.5-10.8) 06/16/19 05:27 RBC 3.65 10^6 /uL (3.70-4.87) L 06/16/19 05:27 Hgb 11.8 g/dL (12.0-16.0) L 06/16/19 05:27 Hct 34 % (35-47) L 06/16/19 05:27 MCV 93 fL (80-97) 06/16/19 05:27 MCH 32 pg (27-31) H 06/16/19 05:27 MCHC 35 g/dL (31-36) 06/16/19 05:27 RDW 14 % (10-15) 06/16/19 05:27 Plt Count 302 10^3/uL (150-450) 06/16/19 05:27 MPV 8.5 fL (7.4-10.4) 06/16/19 05:27 Neut % (Auto) 66.5 % 06/16/19 05:27 Lymph % (Auto) 11.9 % 06/16/19 05:27 [place] % (Auto) 18.4 % 06/16/19 05:27 Eos % (Auto) 2.8 % 06/16/19 05:27 Baso % (Auto) 0.4 % 06/16/19 05:27 Absolute Neuts (auto) 5.2 10^3/ul (1.5-7.7) 06/16/19 05:27 Absolute Lymphs (auto) 0.9 10^3/ul (1.0-4.8) L 06/16/19 05:27 Absolute Monos (auto) 1.5 10^3/ul (0-0.8) H 06/16/19 05:27 Absolute Eos (auto) 0.2 10^3/ul (0-0.6) 06/16/19 05:27 Absolute Basos (auto) 0.0 10^3/ul (0-0.2) 06/16/19 05:27 Absolute Nucleated RBC 0.0 10^3/ul 06/16/19 05:27 Nucleated RBC % 0.1 06/16/19 05:27 Sodium 134 mmol/L (135-145) L 06/16/19 05:35 Potassium TNP 06/16/19 05:35 Chloride 104 mmol/L (101-111) 06/16/19 05:35 Carbon Dioxide 22 mmol/L (22-32) 06/16/19 05:35 Anion Gap 8 mmol/L (2-11) 06/16/19 05:35 BUN 3 mg/dL (6-24) L 06/16/19 05:35 Creatinine 0.53 mg/dL (0.51-0.95) 06/16/19 05:35 Est GFR ( Amer) 149.6 (>60) 06/16/19 05:35 Est GFR (Non-Af Amer) 123.6 (>60) 06/16/19 05:35 BUN/Creatinine Ratio 5.7 (8-20) L 06/16/19 05:35 Glucose 116 mg/dL (70-100) H 06/16/19 05:35 Lactic Acid 1.2 mmol/L (0.5-2.0) 06/13/19 05:27 Calcium 8.4 mg/dL (8.6-10.3) L 06/16/19 05:35 Phosphorus 4.3 mg/dL (2.5-5.0) 06/16/19 05:35 Magnesium 1.6 mg/dL (1.9-2.7) L 06/16/19 05:35 Total Bilirubin 0.60 mg/dL (0.2-1.0) 06/10/19 21:53 Direct Bilirubin 0.10 mg/dL (0.03-0.18) 06/10/19 21:53 Indirect Bilirubin 0.5 mg/dL (0.3-1.0) 06/10/19 21:53 AST 15 U/L (13-39) 06/10/19 21:53 ALT 11 U/L (7-52) 06/10/19 21:53 Alkaline Phosphatase 49 U/L (34-104) 06/10/19 21:53 C-Reactive Protein 226.38 mg/L (<8.01) H 06/13/19 05:27 Total Protein 7.3 g/dL (6.4-8.9) 06/10/19 21:53 Albumin 4.6 g/dL (3.2-5.2) 06/10/19 21:53 Globulin 2.7 g/dL (2-4) 06/10/19 21:53 Albumin/Globulin Ratio 1.7 (1-3) 06/10/19 21:53 Lipase 11 U/L (11.0-82.0) 06/10/19 21:53 Urine Color Yellow 06/10/19 21:43 Urine Appearance Clear 06/10/19 21:43 Urine pH 7.0 (5-9) 06/10/19 21:43 Ur Specific [place] 1.011 (1.010-1.030) 06/10/19 21:43 Urine Protein Negative (Negative) 06/10/19 21:43 Urine Ketones Trace (Negative) A 06/10/19 21:43 Urine Blood Negative (Negative) 06/10/19 21:43 Urine Nitrate Negative (Negative) 06/10/19 21:43 Urine Bilirubin Negative (Negative) 06/10/19 21:43 Urine Urobilinogen Negative (Negative) 06/10/19 21:43 Ur Leukocyte Esterase Negative (Negative) 06/10/19 21:43 Urine Glucose Negative (Negative) 06/10/19 21:43 Anti-Nuclear Antibody 0.2 U 06/14/19 05:17 Assessment: []s/p lilian, stable, Plan: [] await return bowel fxn
[2019-06-16] MEDS ORDERED: Magnesium Sulfate 2 GM IV* 2 GM/50 ML BAG IVPB ONE (08:20)
[2019-06-16] MEDS ORDERED: Famotidine TAB* 20 MG PO PRN (08:20)
[2019-06-16] MEDS ORDERED: HYDROmorphone INJ* 0.5 MG/0.5 ML SYRINGE IV PRN (08:22)
--- NOTE | 2019-06-16 08:24 | PN ---
Subjective Date of Service: 06/16/19 Interval History: Walked outside yesterday with IVF. Given that she is tolerating clears, plan to advance diet today to full liquids for lunch. Stop abx given 6 days completed, no return of fever or leukocytosis. Stop IVF given edema and tolerating PO. Update: Pt tolerated full liquids for lunch, and also is newly passing gas through ostomy! Past Medical History: Unchanged from Admission Objective Active Medications: Al Hydrox/Mg Hydrox/Simethicone (Maalox Plus*) 30 ml PO Q2H PRN PRN Reason: gas pain Enoxaparin Sodium (Lovenox(*)) 40 mg SUBCUT BEDTIME ESEQUIEL Famotidine (Pepcid Tab*) 20 mg PO BID PRN PRN Reason: HEARTBURN Nicotine (Nicotine Patch 14 Mg/24 Hr*) 1 patch TRANSDERM DAILY [facility] Last Admin: 06/16/19 09:13 Dose: 1 patch Nicotine Polacrilex (Nicotine Gum*) 2 mg PO Q2H PRN PRN Reason: CRAVING Last Admin: 06/13/19 06:57 Dose: 2 mg Ondansetron HCl (Zofran Inj*) 4 mg IV Q6H PRN PRN Reason: NAUSEA/VOMITING Last Admin: 06/15/19 22:07 Dose: 4 mg Pharmacy Profile Note (Nicotine Patch Removal Note*) 1 note FOLLOW UP 2100 [facility] Last Admin: 06/15/19 23:53 Dose: 1 note Pharmacy Profile Note (Scopolamine Patch Remove*) 1 note PATCH OFF Q72H [facility] Last Admin: 06/15/19 15:57 Dose: 1 patch Trazodone HCl (Desyrel Tab*) 50 mg PO BEDTIME PRN PRN Reason: SLEEP Last Admin: 06/15/19 22:22 Dose: 50 mg Vital Signs - 8 hr 06/16/19 06/16/19 06/16/19 03:11 03:47 05:53 Temperature 98.6 F Pulse Rate 75 Respiratory 16 16 18 Rate Blood Pressure 139/82 (mmHg) O2 Sat by Pulse 90 Oximetry 06/16/19 07:38 Temperature 98.1 F Pulse Rate 77 Respiratory 16 Rate Blood Pressure 148/81 (mmHg) O2 Sat by Pulse 95 Oximetry Oxygen Devices in Use Now: None Appearance: well appearing woman, alert, interactive, pleasant although occasionally tearful when expressing worry about ileus Eyes: No Scleral Icterus Ears/Nose/Mouth/Throat: Clear Oropharnyx, Mucous Membranes Moist Neck: NL Appearance and Movements; NL JVP, Trachea Midline Respiratory: Symmetrical Chest Expansion and Respiratory Effort, Clear to Auscultation Cardiovascular: NL Sounds; No Murmurs; No JVD, RRR Abdominal: - - distended and moderately tympanic, no ttp, mid-line surgical site with kings c/d/i; ostomy bag with small amt of clear green fluid but no gas or stool Extremities: - - 1+ edema around ankle Neurological: Alert and Oriented x 3 Result Diagrams: 06/16/19 05:27 06/16/19 08:53 Additional Lab and Data: Lab Results 06/10/19 06/10/19 06/10/19 Range/Units 21:43 21:53 21:53 WBC 17.1 H (3.5-10.8) 10^3/uL RBC 4.53 (3.70-4.87) 10^6 /uL Hgb 14.3 (12.0-16.0) g/dL Hct 42 (35-47) % MCV 92 (80-97) fL MCH 32 H (27-31) pg MCHC 34 (31-36) g/dL RDW 14 (10-15) % Plt Count 292 (150-450) 10^3/uL MPV 7.4 (7.4-10.4) fL Neut % (Auto) 92.8 % Lymph % (Auto) 1.7 % Moffat % (Auto) 4.9 % Eos % (Auto) 0.1 % Baso % (Auto) 0.5 % Absolute Neuts (auto) 15.8 H (1.5-7.7) 10^3/ul Absolute Lymphs (auto) 0.3 L (1.0-4.8) 10^3/ul Absolute Monos (auto) 0.8 (0-0.8) 10^3/ul Absolute Eos (auto) 0.0 (0-0.6) 10^3/ul Absolute Basos (auto) 0.1 (0-0.2) 10^3/ul Absolute Nucleated RBC 0.0 10^3/ul Nucleated RBC % 0.0 Sodium 131 L (135-145) mmol/L Potassium 3.9 (3.5-5.0) mmol/L Chloride 100 L (101-111) mmol/L Carbon Dioxide 25 (22-32) mmol/L Anion Gap 6 (2-11) mmol/L BUN 7 (6-24) mg/dL Creatinine 0.60 (0.51-0.95) mg/dL Est GFR ( Amer) 129.7 (>60) Est GFR (Non-Af Amer) 107.2 (>60) BUN/Creatinine Ratio 11.7 (8-20) Glucose 138 H (70-100) mg/dL Calcium 9.5 (8.6-10.3) mg/dL Urine Color Yellow Urine Appearance Clear Urine pH 7.0 (5-9) Ur Specific [place] 1.011 (1.010-1.030) Urine Protein Negative (Negative) Urine Ketones Trace A (Negative) Urine Blood Negative (Negative) Urine Nitrate Negative (Negative) Urine Bilirubin Negative (Negative) Urine Urobilinogen Negative (Negative) Ur Leukocyte Esterase Negative (Negative) Urine Glucose Negative (Negative) Assess/Plan/Problems-Billing Assessment: 48W with h/o diverticulitis, presents with SBO, now s/p ex lap with SHELLI, appendectomy, and sigmoid colectomy with end-colostomy in 06/12. Pending resolution of post-op ileus. - Patient Problems (1) SBO (small bowel obstruction) Current Visit: Yes Status: Acute Code(s): K56.609 - UNSP INTESTNL OBST, UNSP TO PARTIAL VERSUS COMPLETE OBST SNOMED Code(s): 257726736 Comment: h/o SBOs, presented with acute abdomen. Small sigmoid perforation noted s/p appendectomy and colectomy/rojas procedure 06/12. - advancing diet to solids tonight - pain control with APAP prn mild, NSAID prn moderate, and opioid prn severe pain, but spacing out doses - cont Zofran IV prn nausea, and Maalox prn gas pain
[2019-06-16] MEDS: Nicotine PATCH 14 MG/24 HR* PATCH TRANSDERM SCH (09:13)
[2019-06-16] MEDS: Ketorolac INJ* 30 MG/ML 1 ML VIAL IV PRN ×2 (09:16→15:48)
[2019-06-16] MEDS ORDERED: Al Hydrox/Mg Hydrox/Simet LIQ* 30 ML UDC PO PRN (09:38)
[2019-06-16] MEDS ORDERED: Ketorolac INJ* 30 MG/ML 1 ML VIAL IV PRN (17:10)
[2019-06-16] MEDS ORDERED: Acetaminophen TAB* 325 MG PO PRN (17:10)
[2019-06-16] MEDS: Ondansetron INJ* 2 MG/ML VIAL IV PRN (19:55)
[2019-06-16] MEDS ORDERED: Enoxaparin(*) 40 MG/0.4 ML SYR SUBCUT SCH (21:00)
[2019-06-16] MEDS: Nicotine* 2MG (FRUIT FLAVOR) GUM PO PRN (21:29)
[2019-06-16] MEDS: traZODone TAB* 50 MG TAB PO PRN (21:29)
[2019-06-16] MEDS: Nicotine Patch Removal NOTE FOLLOW UP SCH (21:30)
[2019-06-17 05:25] LABS: BUN/Creatinine Ratio 7.7 (8-20); Calcium 8.3 mg/dL (8.6-10.3); EGFR African American 152.9 (>60); EGFR Non-African American 126.4 (>60); Magnesium 1.8 mg/dL (1.9-2.7); Potassium 3.5 mmol/L (3.5-5.0)
[2019-06-17] MEDS: HYDROmorphone INJ* 0.5 MG/0.5 ML SYRINGE IV PRN (08:28)
[2019-06-17] MEDS: Nicotine PATCH 14 MG/24 HR* PATCH TRANSDERM SCH (08:33)
--- NOTE | 2019-06-17 11:27 | PN ---
Progress Note - Progress Note Date of Service: 06/17/19 SOAP: Subjective: [] Pt comfortable in bed, tolerated diet advance from fulls to regular. + gas and stool in ostomy bag. Ambulating well. Complains of bloating Objective: [] Temp Pulse Resp BP Pulse Ox 99.6 F 69 16 156/90 98 06/17/19 07:26 06/17/19 07:26 06/17/19 08:30 06/17/19 07:26 06/17/19 07:26 Abnormal Lab Results 06/17/19 04:30 Sodium 136 Potassium 3.5 Chloride 105 Carbon Dioxide 25 Anion Gap 6 BUN 4 L Creatinine 0.52 Est GFR ( Amer) 152.9 Est GFR (Non-Af Amer) 126.4 BUN/Creatinine Ratio 7.7 L Glucose 91 Calcium 8.3 L Magnesium 1.8 L ABD : midline incision C/D/I kings in place, No errythema, stoma pink healthy looking, small amount dark liquid stool and air in bag. Passed flatus during exam EXT : Calves soft, non tender Assessment: [] POD 5 S/P ex lap, appendectomy, vineet's for perf sigmoid. Plan: [] D/C to home. Nursing to review ostomy care with patient. Supplies to be given. D/C strategic planner arranged home visits. F/U office Sunday 06/24 at 9:15
[2019-06-17] MEDS ORDERED: HYDROmorphone TAB* 2 MG PO PRN (11:42)
[2019-06-17] MEDS ORDERED: Ibuprofen TAB* 600 MG PO PRN (11:44)
[2019-06-17 12:16] VITALS: BP 152/85
--- NOTE | 2019-06-17 22:02 | DS ---
CC: Dr. Sybil Jeffers; Dr. Rudy Spangler; [facility] * DISCHARGE SUMMARY: DATE OF ADMISSION: 06/11/19 DATE OF DISCHARGE: 06/17/19 HISTORY: Ms. Armstrong is a 48-year-old female presenting with abdominal pain, was admitted to the hospitalist service with surgery consultation, concern for possible ileitis was entertained. The patient was septic and despite antibiotics, continued to worsen. She was evaluated by my partner, Dr. Lima who followed her closely. She also was evaluated by Gastroenterology. The patient's followup x-ray showed moderately dilated loops of bowel and on repeat examination the patient was felt to show no improvement and indeed worsening despite antibiotics on this hospital day 2 with peritoneal signs and surgery was recommended by my partner, who discussed the case together with me and the patient was taken timely to the operating room for exploratory laparotomy. The patient underwent lysis of adhesions, appendectomy, and sigmoid colectomy with end colostomy. Please see operative note for full details. Pathology was consistent with an acute serositis at both the appendix and the sigmoid colon with diverticular disease, no perforation, although I have discussed this case with the pathologist, this was noted during the surgical intervention. The patient's postoperative course was mostly uneventful. She improved significantly from a hemodynamic standpoint. She remained on antibiotics and did show mild ileus that improved quickly. She was started on liquids by postoperative day 2 and this was advanced in accordance to her daily findings on examination. She was followed by the hospital service as well as the surgery service and by postoperative day 5 was ready for discharge and discharged home with planned followup in my office for removal of kings. She was given ostomy teaching and understands what to look out for going forward. The patient was given a prescription for narcotics. She can take ibuprofen as well and we will see her closely as an outpatient. Her questions were answered , and again her pathology was resulted. She is discharged home in stable condition. [id number]/[facility] #: [id number] MTDD
--- NOTE | 2019-06-18 03:46 | OP ---
DATE OF OPERATION: 06/11/19 - ROOM #331 DATE OF : 72 SURGEON: Robby Son MD MOTHER HELPER: JO-ANN Steen and Grant Lima MD ANESTHESIOLOGIST: Dr. Smiley. ANESTHESIA: General anesthesia. PRE-OP DIAGNOSIS: Acute abdomen. POST-OP DIAGNOSIS: Perforated sigmoid colon. OPERATIVE PROCEDURE: Exploratory laparotomy, lysis of adhesions, appendectomy and sigmoid colectomy with end colostomy. ESTIMATED BLOOD LOSS: 100 cc. FLUIDS: 2200 cc of crystalloid fluid given. SPECIMENS: 1. Appendix. 2. Sigmoid colon. DRAINS: None. Colostomy placed. FINDINGS: Ms. Armstrong is a 48-year-old female followed by my partner with acute abdominal pain with a workup including CAT scan and labs, who continued to worsen despite antibiotics and observation and recommendation was for exploratory laparotomy. I discussed the case with him in detail, reviewing the images and examining the patient and agreed to proceed with exploratory laparotomy. I outlined the details of the procedure, going over the risks, benefits and alternatives in a standard fashion. We spoke of the possible complications, which included but not limited to bleeding, infection, need for additional surgeries, injury to adjacent organs, prolonged hospital course, SD, stroke and even . We spoke of possible need for bowel resection. The patient's questions were answered and she was marked and consent was signed. DESCRIPTION OF PROCEDURE: The patient was taken to the operating room, placed on the operating table in supine position. The patient was already on preoperative antibiotics. Sequential devices were placed on bilateral lower extremities. General anesthesia was induced. The patient's abdomen was prepped and draped in standard surgical fashion. A time-out was performed. A midline incision was made 2 fingerbreadths above the umbilicus and extended this inferiorly for approximately 4 cm. This was deepened through the abdominal wall and entry into the abdominal cavity was made. Serous fluid was encountered and this was suctioned off. The small bowel was dilated and we were able to remove most of this from the abdomen. We had followed this dilated small bowel from the ligament of Treitz right down to the right pelvis where portion of the small bowel was matted down and would not be released without additional dissection. We had to increase our incision inferiorly and then placed an Shahzad wound retractor/protector in and once this was in place, I thoroughly identify the sigmoid colon along with the terminal ileum which also showed some dilation, but this allowed us to free up the distal portion of the ileum that was tacked down into the deeper pelvis. Once this small bowel was pulled up, we could see a significant amount of exudative tissue on the terminal ileum. There was no creeping fat to suggest a Crohn's disease. There were no strictures. There was no evidence of perforation. Some of the exudative material was removed, peeled off without causing any additional injuries. The appendix was identified and this was intact without evidence of inflammation. I performed an appendectomy, isolating the base of the appendix as well as the mesentery, which was taken with 3-0 silk suture. The appendix itself was then ligated with a 2-0 silk suture and dunked with an additional imbricating silk suture. The small bowel was then run retrograde and no additional lesions were identified. Again about the distal 15 cm had this exudative material. Attention was then turned towards the pelvis. The rectum was soft as was the distal sigmoid colon and I was not sure that this was a part of the disease, but as we followed this towards the descending colon, there was a turn back of the sigmoid colon in the left iliac fossa, this was bluntly released and was noted to have a significant amount of exudative tissue as well. We never entered any pockets of pus, but examining the proximal sigmoid colon there was similar exudative tissue with the exception of small area that appeared to be perforation. I was able to place forceps through a small submillimeter pin hole , this tracked along the sigmoid colon, but no stool was leaked out at this point. The sigmoid colon at this site was very woody with some diverticula and I made a decision to perform a resection of this site. To better evaluate this, we did increase the incision superiorly and as well as inferiorly and placed the Bookwalter in place for better retraction. The line of Toldt was taken with cautery right up towards the splenic flexure. The transverse colon was significantly redundant, but it was free of any disease. The stomach had an NG tube placed and this was intact and there were no lesions at this site. Liver also showed no lesions. Gallbladder was soft and within normal limits. Next, we extended our peritoneal dissection over the sacral promontory, chose a point on the distal sigmoid colon through healthy tissue and placed a 60 mm blue TA stapler across this. We then took the sigmoid mesentery with the LigaSure device right up to the portion of the descending colon that was still healthy and transected the sigmoid colon that passed it off as a specimen. We did not orient it. The stapler for the proximal portion was a 60 mm MELANIE blue stapler. Attention was turned towards the pelvis. The rectosigmoid stump was intact and we placed a 2-0 Prolene suture at this site to tag it. I irrigated and hemostasis was achieved. We then turned our attention to the proximal cut portion of colon. This had already been freed up and we were able to bring this up to the abdominal wall with ease. A point was chosen at the left lower quadrant. A disk of skin was removed. We dissected down to the rectus pillar on the left, incised the fascia over this and split the muscle and made our space for the colostomy pulling the descending colon through this area. We then irrigated the abdomen. The small bowel was remained dilated, but we dropped this back into the abdomen and brought the omentum over our incision site which was reapproximated with #1 loop PDS suture starting inferiorly and superiorly and tying them in the middle. We then closed the skin with skin kings after irrigating the wound and placed a sterile dressing there. Attention was then turned towards the colostomy, it was pink and viable. We then cut the staple edge off and matured the ostomy in the standard fashion with 2-0 Vicryl and 3-0 Vicryl sutures. A colostomy appliance was placed to this site and the patient was woken up and transferred to PACU in stable condition. [id number]/[facility] #: [id number] ALAN
== END 2019-06-17 14:15 | disposition home or self-care (01) | DRG 710 ==
LOC: ED 19:27 → MED 06-11 07:32 → SSU 06-12 20:03
PROVIDERS: ADMIT Internal Medicine; ATTEND Surgery
PROC: 0DTJ0ZZ Resection of Appendix, Open Approach (ICD-10-PCS; principal; 2019-06-11)
PROC: 0DTN0ZZ Resection of Sigmoid Colon, Open Approach (ICD-10-PCS; 2019-06-11)
PROC: 0D1M0Z4 Bypass Descending Colon to Cutaneous, Open Approach (ICD-10-PCS; 2019-06-11)
PROC: 0DN80ZZ Release Small Intestine, Open Approach (ICD-10-PCS; 2019-06-11)
DX: A41.9 Sepsis, unspecified organism (principal); K65.8 Other peritonitis; K56.50 Intestinal adhesions [bands], unspecified as to partial versus complete obstruction; K57.20 Diverticulitis of large intestine with perforation and abscess without bleeding; E87.1 Hypo-osmolality and hyponatremia; K56.7 Ileus, unspecified; J98.11 Atelectasis; E83.42 Hypomagnesemia; E83.39 Other disorders of phosphorus metabolism; E86.0 Dehydration; E87.6 Hypokalemia; F17.210 Nicotine dependence, cigarettes, uncomplicated; K52.9 Noninfective gastroenteritis and colitis, unspecified; I10 Essential (primary) hypertension; N80.0 Endometriosis of uterus; G47.00 Insomnia, unspecified; Z79.899 Other long term (current) drug therapy; Z88.6 Allergy status to analgesic agent; Z88.5 Allergy status to narcotic agent; Z88.8 Allergy status to other drugs, medicaments and biological substances; Z80.3 Family history of malignant neoplasm of breast; Z82.49 Family history of ischemic heart disease and other diseases of the circulatory system
CPT/HCPCS: 36415; 74019; 74177; 80048; 80076; 81003; 83605; 83690; 83735; 84100; 85025; 86038; 86140; 88302; 88307; 99285; 99406; A9270-GY; C1776; J0744; J0780; J1100; J1170; J1240; J1644; J1650; J1885; J2250; J2270; J2405; J2543; J2704; J3010; J3475; Q9967

== ENCOUNTER 2019-09-04 10:52 | Inpatient (IN) | payer BC ==
--- NOTE | 2019-08-28 15:03 | HP ---
AMENDED REPORT NOW INCLUDES DESIGNATED COSIGNER - ESIGNED BEFORE ADJUSTMENTS CC: Dr. Sybil Jeffers * PREOPERATIVE HISTORY AND PHYSICAL: DATE OF ADMISSION/SURGERY: This patient is scheduled for AA admission by Dr. Son on 09/04/19. DATE OF PREOPERATIVE HISTORY AND PHYSICAL EXAMINATION: 08/28/19. ATTENDING SURGEON: Dr. Robby Son * (dictated by Skylar Beebe NP). CHIEF COMPLAINT: Reversal of colostomy. HISTORY OF PRESENT ILLNESS: The patient is a 49-year-old female, known to Dr. Son, status post exploratory laparotomy, lysis of adhesions, appendectomy, and sigmoid colectomy with end colostomy for perforated diverticulitis, . She has done very well postoperatively; she has gained weight and has a good appetite and has done well with her colostomy care. Dr. Son met with the patient here in the office and discussed reversal of the colostomy and described the nature of the surgical procedure, which is laparoscopic-assisted reversal of colostomy. He discussed the relevant risks and benefits, and today , I discussed the typical hospitalization. The patient has had a chance to ask questions and stated that she understands the information and is satisfied with the answers given to her questions. She will sign surgical consent on the day of surgery. On the day before surgery, she will take a bowel cleansing prep consisting of a clear liquid diet, Colyte laxative, metronidazole tablets, and neomycin tablets. PAST MEDICAL HISTORY: Diverticulitis, endometriosis, and gastritis. PAST SURGICAL HISTORY: Bilateral breast augmentation, partial hysterectomy, laparoscopy for endometriosis, and laparoscopic left oophorectomy. MEDICATIONS: 1. Lunesta 1 mg p.o. daily at bedtime. 2. Nicotine patch step 2, 14 mg/24 hours, apply in the morning, remove at bedtime. ALLERGIES: HYDROCODONE, MEPERIDINE, and OXYCODONE, all cause severe vomiting; CODEINE "crawly" skin; she is able to tolerate Dilaudid and Toradol. FAMILY HISTORY: Mother is slow to recover from anesthesia and has severe vomiting. No known family history of bleeding tendencies or clotting disorders. SOCIAL HISTORY: She is . She quit smoking in May 2019 and is using a nicotine patch. She drinks alcohol socially. REVIEW OF SYSTEMS: Constitutional: No fevers, chills, excessive fatigue, or weight loss. EENT: No problems with hearing. No sore throat. No sinus drainage. No visual difficulties. Endocrine: No diabetes or thyroid disease. Hematologic: No easy bruising or bleeding. No history of blood transfusions. Breasts: No abnormalities reported. Respiratory: No dyspnea on exertion. No chronic cough. She stopped smoking in May 2019. Cardiovascular: No anginal chest pain or palpitations. Gastrointestinal: No nausea or vomiting. She is doing well with colostomy care. Genitourinary: No dysuria. Musculoskeletal: Normal strength and tone. Integumentary: No chronic rashes or skin changes. Neurologic: No headache, blurred vision, areas of focal weakness or numbness. Psychiatric: No reported anxiety, depression, or insomnia. General: No history of anesthesia complications. No history of deep vein thrombosis or pulmonary embolism. PHYSICAL EXAMINATION GENERAL SURVEY: The patient is a 49-year-old female, well developed, well nourished, in no acute distress. VITAL SIGNS: Height 60 inches, weight 110 pounds, body mass index 21.5. Blood pressure 98/62, pulse 84 and regular, respiratory rate 12, temperature 98.1 tympanic. HEENT: Benign. NECK: Supple. No cervical lymphadenopathy. LUNGS: Breath sounds bilaterally clear and equal. HEART: Regular rate and rhythm. No murmurs or rubs appreciated. ABDOMEN: Active bowel sounds, soft, nondistended, nontender. Well-healed surgical incisions. No obvious parastomal or ventral hernias. Colostomy with brown semi- formed stool with a pink stoma. EXTREMITIES: Warm without edema or skin ulcerations. BACK: No CVA tenderness. PELVIC: Deferred. RECTAL: Deferred. NEUROLOGIC: Alert and oriented x3. Steady gait. SKIN: Warm, dry, intact. IMPRESSION: Diverticulitis of large intestine with perforation and abscess. PLAN: AA admission to Dr. Son's service on 09/04/19, for laparoscopic- assisted reversal of colostomy. The patient will take a bowel cleansing prep on the day before surgery consisting of clear liquids, Colyte laxative, neomycin and metronidazole tablets. KARLENE BEEBE, GOVERNMENT AFFAIRS MANAGER [id number]/[facility] #: [id number] ALAN
[~2019-09-04 10:52] MED LIST: Buffered Lidocaine 1% SYRIN* 1 ML/SYRINGE INTRADERM ONE; Dexamethasone IV* 4 MG/ML 1 ML (4 MG) IV SLOW PU ONE; ERTApenem(*) 1 GM in NS 0.9% 50 ML* 50 ML IVPB SCH; Famotidine IV* 10 MG/ML 2 ML (20 mg) IV ONE; Gabapentin CAP(*) 400 MG PO ONE; Lactated Ringers 1000 ML Bag* 1,000 ML IV SCH; celeCOXIB CAP* 200 MG PO ONE
--- OUTSIDE RECORDS SUMMARY | 2019-09-04 10:55 | XMS REPORT | Continuity of Care Document ---
:1970 External Reference #:[id number] Author Name Skylar Randall NP (transmitted by agent of provider Nick Brizuela) Address [address] [place] [address] Care Team Providers Name Role Phone Sybil Jeffers MD - Family Care Team Information Casing Grader [phone] Medicine Problems Description No Information Available Social History Type Date Description Comments Sex Unknown ETOH Use Occasionally consumes alcohol Recreational Drug Use Denies Drug Use Tobacco Use Start: Unknown End: Patient is a former smoker quit 05/2019 Unknown Smoking Status Reviewed: 08/28/19 Patient is a former smoker quit 05/2019 Exercise Type/Frequency Exercises sporadically Allergies, Adverse Reactions, Alerts Active Allergies Reaction Severity Comments Date Hydrocodone vomit 06/18/2019 Meperidine vomit 06/18/2019 Codeine "crawly" skin 06/18/2019 Oxycodone vomit 06/18/2019 Medications Active Medications SIG Qnty Indications Ordering Provider Date Peg 3350/Electrolytes mix and use as 4000ml Skylar B. 08/28/2019 directed on the Eckenrode, [employer]ACQU[employer] 240gm Solution Rec day before surgery Metronidazole 1 tablet by 3tabs Skylar B. 08/28/2019 500mg mouth at 1pm,2pm Eckenrode, JACQU[employer]ER Tablets and 11pm on the day before surgery Neomycin Sulfate 2 tabs at 6tabs Skylar B. 08/28/2019 500mg 1pm,2pm and 11pm Eckenrode, JACQUARD [employer]ER Tablets on the day before surgery Lunesta one by mouth at Unknown 1mg Tablets bedtime as needed insomnia Nicotine Step 2 once a day Unknown 14mg/24HR Patches 24HR History Medications Dilaudid 1 pill by mouth 8tabs Robby Son, 06/21/2019 - Unknown 2mg Tablets every 6 hours as , NOHEMY needed for severe pain Immunizations Description No Information Available Vital Signs Date Vital Result Comment 08/28/2019 10:05am Height 60 inches 5'0" Weight 110.00 lb Heart Rate 84 /min BP Systolic Sitting 98 mmHg BP Diastolic Sitting 62 mmHg Respiratory Rate 12 /min Body Temperature 98.1 F BMI (Body Mass Index) 21.5 kg/m2 07/15/2019 9:06am Heart Rate 78 /min BP Systolic 110 mmHg BP Diastolic 74 mmHg Respiratory Rate 16 /min Body Temperature 98.1 F Results Description No Information Available Procedures Date Code Description Status 06/11/2019 96895 Appendectomy W/Other Major Procedure Completed 06/11/2019 89714 Appendectomy W/Other Major Procedure Completed 06/11/2019 12015 Colectomy Partial W/End Colostomy & Close Distal Segment Completed 06/11/2019 63983 Colectomy Partial W/End Colostomy & Close Distal Segment Completed Medical Devices Description No Information Available Encounters Type Date Location Provider Dx Diagnosis Office Visit 06/16/2019 [facility] Blaire Mack, K63.1 Perforation of 9:37a makenna Rodríguez MD intestine Hospitalists (nontraumatic) Z87.19 Personal history of other diseases of the digestive system Office Visit 06/15/2019 [facility] K63.1 Perforation of 9:37a makenna Rodríguez MD intestine Hospitalists (nontraumatic) K52.9 Noninfective gastroenteritis and colitis, unspecified E83.42 Hypomagnesemia E87.6 Hypokalemia E83.39 Other disorders of phosphorus metabolism Z87.19 Personal history of other diseases of the digestive system Office Visit 06/14/2019 [facility] K56.609 Unsp intestnl 9:36a makenna Rodríguez MD obst, unsp as Hospitalists to partial versus complete obst K52.9 Noninfective gastroenteritis and colitis, unspecified E83.42 Hypomagnesemia E87.6 Hypokalemia E83.39 Other disorders of phosphorus metabolism Office Visit 06/13/2019 [facility] K56.609 Unsp intestnl 9:36a makenna Rodríguez MD obst, unsp as Hospitalists to partial versus complete obst K52.9 Noninfective gastroenteritis and colitis, unspecified Office 06/12/2019 [facility] Disha K56.609 Unsp intestnl obst, Visit 9:36a makenna Rodríguez MD unsp as to partial Hospitalists versus complete obst Office 06/11/2019 [facility] Gastroenterology Murray Hodge K52.9 Noninfective Visit 7:00a MD Jay gastroenteritis and colitis, unspecified K57.30 Dvrtclos of lg int w/o perforation or abscess w/o bleeding Office Visit 06/11/2019 [facility] Nikkie K52.9 Noninfective 9:35a makenna Rodríguez M.D. gastroenteritis and Hospitalists colitis, unspecified A41.9 Sepsis, unspecified organism E86.0 Dehydration Z86.79 Personal history of other diseases of the circulatory system Office Visit 06/11/2019 7:00a Surgical Grant S. R10.0 Acute abdomen [facility] MD Clarence Assessments Date Code Description Provider 08/28/2019 K57.20 Diverticulitis of large intestine with Skylar Randall NP perforation and abscess without bleeding 08/28/2019 Z01.818 Encounter for other preprocedural Skylar Randall NP examination 07/15/2019 K57.20 Diverticulitis of large intestine with Robby Son MD , FACS perforation and abscess without bleeding 07/11/2019 K57.20 Diverticulitis of large intestine with Robby Son MD , FACS perforation and abscess without bleeding 07/11/2019 K57.20 Diverticulitis of large intestine with Shira Colon MD perforation and abscess without bleeding 06/24/2019 K57.20 Diverticulitis of large intestine with Robby Son MD , FACS perforation and abscess without bleeding 06/17/2019 K57.20 Diverticulitis of large intestine with James Aguilar PA-C perforation and abscess without bleeding 06/17/2019 K57.20 Diverticulitis of large intestine with Robby Son MD , FACS perforation and abscess without bleeding 06/17/2019 K65.8 Other peritonitis Robby Son MD, FACS 06/17/2019 K35.30 Acute appendicitis with localized Robby Son MD, FACS peritonitis, without perforation or gangrene 06/16/2019 K63.1 Perforation of intestine (nontraumatic) Blaire Mack MD 06/16/2019 Z87.19 Personal history of other diseases of Blaire Mack MD the digestive system 06/15/2019 K63.1 Perforation of intestine (nontraumatic) Disha Olguin MD 06/15/2019 K52.9 Noninfective gastroenteritis and Disha Olguin MD colitis, unspecified 06/15/2019 E83.42 Hypomagnesemia Disha Olguin MD 06/15/2019 E87.6 Hypokalemia Disha Olguin MD 06/15/2019 E83.39 Other disorders of phosphorus Disha Olguin MD metabolism 06/15/2019 Z87.19 Personal history of other diseases of Disha Olguin MD the digestive system 06/14/2019 K56.609 Unspecified intestinal obstruction, Disha Olguin MD unspecified as to partial versus complete obstruction 06/14/2019 K52.9 Noninfective gastroenteritis and Disha Olguin MD colitis, unspecified 06/14/2019 E83.42 Hypomagnesemia Disha Olguin MD 06/14/2019 E87.6 Hypokalemia Disha Olguin MD 06/14/2019 E83.39 Other disorders of phosphorus Disha Olguin MD metabolism 06/13/2019 K56.609 Unspecified intestinal obstruction, Disha Olguin MD unspecified as to partial versus complete obstruction 06/13/2019 K52.9 Noninfective gastroenteritis and Disha Olguin MD colitis, unspecified 06/12/2019 K56.609 Unspecified intestinal obstruction, Disha Olguin MD unspecified as to partial versus complete obstruction 06/11/2019 K52.9 Noninfective gastroenteritis and Murray Thompson MD colitis, unspecified 06/11/2019 K57.20 Diverticulitis of large intestine with Grant Lima MD perforation and abscess without bleeding 06/11/2019 K57.20 Diverticulitis of large intestine with Robby Son MD , FACS perforation and abscess without bleeding 06/11/2019 K57.30 Diverticulosis of large intestine Murray Thompson MD without perforation or abscess without bleeding 06/11/2019 K65.8 Other peritonitis Grant Lima MD 06/11/2019 K65.8 Other peritonitis Robby Son MD, FACS 06/11/2019 R10.0 Acute abdomen Grant Lima MD 06/11/2019 K35.30 Acute appendicitis with localized Grant Lima MD peritonitis, without perforation or gangrene 06/11/2019 K35.30 Acute appendicitis with localized Robby Son MD, FACS peritonitis, without perforation or gangrene 06/11/2019 K52.9 Noninfective gastroenteritis and Nikkie Preciado M.D. colitis, unspecified 06/11/2019 A41.9 Sepsis, unspecified organism Nikkie Preciado M.D. 06/11/2019 E86.0 Dehydration Nikkie Preciado M.D. 06/11/2019 Z86.79 Personal history of other diseases of Nikkie Preciado M.D. the circulatory system Plan of Treatment Future Appointment(s):09/04/2019 2:15 pm - Alexis Bowling MD, FACS at [facility]09/04/2019 2:15 pm - Robby Son MD, FACS at [facility]08/28/2019 - Skylar Randall, NPK57.20 Diverticulitis of large intestine with perforation and abscess without bleedingFollow up:[facility]818 Encounter for other preprocedural examination Functional Status Description No Information Available Mental Status Description No Information Available Referrals Refer to Dr Reason for Referral Status Appt Date Robby Son MD FOR 09/11/19 ---45143--- INPT Created [address] [facility] [address] [phone]
--- OUTSIDE RECORDS SUMMARY | 2019-09-04 10:56 | XMS REPORT | Continuity of Care Document ---
:1970 External Reference #:[id number] Author Name Robby Son MD, FACS (transmitted by agent of provider Carlota Denise) Address [address] [place] [address] Care Team Providers Name Role Phone Sybil Jeffres MD - Family Care Team Information Program Administrator [phone] Medicine Problems Description No Information Available Social History Type Date Description Comments Sex Unknown ETOH Use Occasionally consumes alcohol Recreational Drug Use Denies Drug Use Tobacco Use Start: Unknown End: Patient is a former smoker quit 05/2019 Unknown Smoking Status Reviewed: 07/15/19 Patient is a former smoker quit 05/2019 Exercise Type/Frequency Exercises sporadically Allergies, Adverse Reactions, Alerts Active Allergies Reaction Severity Comments Date Hydrocodone 06/18/2019 Meperidine 06/18/2019 Codeine 06/18/2019 Oxycodone 06/18/2019 Medications Active Medications SIG Qnty Indications Ordering Provider Date Lunesta one by mouth at Unknown 1mg Tablets bedtime as needed insomnia Ibuprofen 2 tabs by mouth Unknown 200mg every 6 hours as Capsules needed Nicotine Step 2 once a day Unknown 14mg/24HR Patches 24HR History Medications Dilaudid 1 pill by mouth 8tabs Robby Son, 06/21/2019 - Unknown 2mg Tablets every 6 hours as NOHEMY WELDON needed for severe pain Immunizations Description No Information Available Vital Signs Date Vital Result Comment 07/15/2019 9:06am Heart Rate 78 /min BP Systolic 110 mmHg BP Diastolic 74 mmHg Respiratory Rate 16 /min Body Temperature 98.1 F 06/24/2019 9:20am Height 60 inches 5'0" Weight 102.00 lb Heart Rate 68 /min BP Systolic Sitting 122 mmHg Respiratory Rate 16 /min Body Temperature 98.1 F BMI (Body Mass Index) 19.9 kg/m2 Results Description No Information Available Procedures Date Code Description Status 06/11/2019 19265 Appendectomy W/Other Major Procedure Completed 06/11/2019 49893 Appendectomy W/Other Major Procedure Completed 06/11/2019 67555 Colectomy Partial W/End Colostomy & Close Distal Segment Completed 06/11/2019 71816 Colectomy Partial W/End Colostomy & Close Distal Segment Completed Medical Devices Description No Information Available Encounters Type Date Location Provider Dx Diagnosis Office Visit 06/16/2019 [facility] Blaire Mack, K63.1 Perforation of 9:37a makenna Rodríguez MD intestine Hospitalists (nontraumatic) Z87.19 Personal history of other diseases of the digestive system Office Visit 06/15/2019 [facility] K63.1 Perforation of 9:37a makenna Rodríguez MD intestine Hospitalists (nontraumatic) K52.9 Noninfective gastroenteritis and colitis, unspecified E83.42 Hypomagnesemia E87.6 Hypokalemia E83.39 Other disorders of phosphorus metabolism Z87.19 Personal history of other diseases of the digestive system Office Visit 06/14/2019 [facility] K56.609 Unsp intestnl 9:36a makenna Rodríguez MD obst, unsp as Hospitalists to partial versus complete obst K52.9 Noninfective gastroenteritis and colitis, unspecified E83.42 Hypomagnesemia E87.6 Hypokalemia E83.39 Other disorders of phosphorus metabolism Office Visit 06/13/2019 [facility] K56.609 Unsp intestnl 9:36a makenna Rodríguez MD obst, unsp as Hospitalists to partial versus complete obst K52.9 Noninfective gastroenteritis and colitis, unspecified Office 06/12/2019 [facility] K56.609 Unsp intestnl obst, Visit 9:36a makenna Rodríguez MD unsp as to partial Hospitalists versus complete obst Office 06/11/2019 [facility] Gastroenterology Murray Hodge K52.9 Noninfective Visit 7:00a MD Jay gastroenteritis and colitis, unspecified K57.30 Dvrtclos of lg int w/o perforation or abscess w/o bleeding Office Visit 06/11/2019 [facility] K52.9 Noninfective 9:35a Assocmakenna M.D. gastroenteritis and Hospitalists colitis, unspecified A41.9 Sepsis, unspecified organism E86.0 Dehydration Z86.79 Personal history of other diseases of the circulatory system Office Visit 06/11/2019 7:00a Surgical Grant S. R10.0 Acute abdomen [facility] MD Clarence Assessments Date Code Description Provider 07/15/2019 K57.20 Diverticulitis of large intestine with [...] Personal history of other diseases of the Blaire Mack MD digestive system 06/15/2019 K63.1 Perforation of intestine (nontraumatic) Disha Olguin MD 06/15/2019 K52.9 Noninfective gastroenteritis and colitis, Disha Olguin MD unspecified 06/15/2019 E83.42 Hypomagnesemia Disha Olguin MD 06/15/2019 E87.6 Hypokalemia Disha Olguin MD 06/15/2019 E83.39 Other disorders of phosphorus metabolism Disha Olguin MD 06/15/2019 Z87.19 Personal history of other diseases of the Disha Olguin MD digestive system 06/14/2019 K56.609 Unspecified intestinal obstruction, Disha Olguin MD unspecified as to partial versus complete obstruction 06/14/2019 K52.9 Noninfective gastroenteritis and colitis, Disha Olguin MD unspecified 06/14/2019 E83.42 Hypomagnesemia Disha Olguin MD 06/14/2019 E87.6 Hypokalemia Disha Olguin MD 06/14/2019 E83.39 Other disorders of phosphorus metabolism Disha Olguin MD 06/13/2019 K56.609 Unspecified intestinal obstruction, Disha Olguin MD unspecified as to partial versus complete obstruction 06/13/2019 K52.9 Noninfective gastroenteritis and colitis, Disha Olguin MD unspecified 06/12/2019 K56.609 Unspecified intestinal obstruction, Disha Olguin MD unspecified as to partial versus complete obstruction 06/11/2019 K52.9 Noninfective gastroenteritis and colitis, Murray Thompson MD unspecified 06/11/2019 K57.20 Diverticulitis of large intestine with Grant Lima MD perforation and abscess without bleeding 06/11/2019 K57.20 Diverticulitis of large intestine with Robby Son MD , FACS perforation and abscess without bleeding 06/11/2019 K57.30 Diverticulosis of large intestine without Murray Thompson MD perforation or abscess without bleeding 06/11/2019 K65.8 Other peritonitis Grant Lima MD 06/11/2019 K65.8 Other peritonitis Robby Son MD, FACS 06/11/2019 R10.0 Acute abdomen Grant Lima MD 06/11/2019 K35.30 Acute appendicitis with localized Grant Lima MD peritonitis, without perforation or gangrene 06/11/2019 K35.30 Acute appendicitis with localized Robby Son MD, FACS peritonitis, without perforation or gangrene 06/11/2019 K52.9 Noninfective gastroenteritis and colitis, Nikkie Preciado M.D. unspecified 06/11/2019 A41.9 Sepsis, unspecified organism Nikkie Preciado M.D. 06/11/2019 E86.0 Dehydration Nikkie Preciado M.D. 06/11/2019 Z86.79 Personal history of other diseases of the Nikkie Preciado M.D. circulatory system Plan of Treatment Future Appointment(s):08/27/2019 10:00 am - Skylar Randall, BARBARA at [facility]09/11/2019 1:00 pm - Alexis Bowling MD, FACS at [facility]09/11/2019 1:00 pm - Robby Son MD, FACS at [facility]07/15/2019 - Robby Son MD, FACSK57.20 Diverticulitis of large intestine with perforation and abscess without bleedingFollow up:operating room Functional Status Description No Information Available Mental Status Description No Information Available Referrals Description No Information Available
--- OUTSIDE RECORDS SUMMARY | 2019-09-04 10:56 | XMS REPORT | Continuity of Care Document ---
:1970 External Reference #:[id number] Author Name Robby Son MD, FACS (transmitted by agent of provider Carlota Denise) Address [address] [place] [address] Care Team Providers Name Role Phone Sybil Jeffers MD - Family Care Team Information Merchandising Director [phone] Medicine Problems Description No Information Available Social [...] Available Procedures Date Code Description Status 06/11/2019 97206 Appendectomy W/Other Major Procedure Completed 06/11/2019 63428 Appendectomy W/Other Major Procedure Completed 06/11/2019 01502 Colectomy Partial W/End Colostomy & Close Distal Segment Completed 06/11/2019 50808 Colectomy Partial W/End Colostomy & Close Distal Segment Completed Medical Devices Description No Information Available Encounters Type Date Location Provider Dx Diagnosis Office Visit 06/16/2019 [facility] Blaire Mack, K63.1 Perforation of 9:37a makenna Rodríguez MD intestine Hospitalists (nontraumatic) Z87.19 Personal history of other diseases of the digestive system Office Visit 06/15/2019 [facility] K63.1 Perforation of 9:37a makenna Rodríguez MD intestine Hospitalists (nontraumatic) K52.9 Noninfective gastroenteritis and colitis, unspecified E83.42 Hypomagnesemia E87.6 Hypokalemia E83.39 Other disorders of phosphorus metabolism Z87.19 Personal history of other diseases of the digestive system Office Visit 06/14/2019 [facility] K56.609 Unsp intestnl 9:36a makenna Rodríguez MD obst, unsp as Hospitalists to partial versus complete obst K52.9 Noninfective gastroenteritis and colitis, unspecified E83.42 Hypomagnesemia E87.6 Hypokalemia E83.39 Other disorders of phosphorus metabolism Office Visit 06/13/2019 [facility] K56.609 Unsp intestnl 9:36a makenna Rodríguez MD obst, unsp as Hospitalists to partial versus complete obst K52.9 Noninfective gastroenteritis and colitis, unspecified Office 06/12/2019 [facility] K56.609 Unsp intestnl obst, Visit 9:36a makenna Rodríguez MD unsp as to partial Hospitalists versus complete obst Office 06/11/2019 [facility] Gastroenterology Murray Hodge K52.9 Noninfective Visit 7:00a MD Jay gastroenteritis and colitis, unspecified K57.30 Dvrtclos of lg int w/o perforation or abscess w/o bleeding Office Visit 06/11/2019 [facility] K52.9 Noninfective 9:35a Assocmakenna M.D. gastroenteritis and Hospitalists colitis, unspecified A41.9 Sepsis, unspecified organism E86.0 Dehydration Z86.79 Personal history of other diseases of the circulatory system Office Visit 06/11/2019 7:00a Surgical Grant S. R10.0 Acute abdomen [facility] MD Clarence Assessments Date Code Description [...] M.D. circulatory system Plan of Treatment Future Appointment(s):09/09/2019 9:00 am - Robby Son MD, FACS at [facility]08/28/2019 12:00 pm - Robby Son MD, FACS at [facility]08/26/2019 9:00 am - Robby Son MD, FACS at [facility]08/27/2019 10:00 am - Skylar Randall, BARBARA at [facility]09/11/2019 1:00 pm - Alexis Bowling MD, FACS at [facility]09/11/2019 1:00 pm - Robby Son MD, FACS at [facility]07/15/2019 - Robby Son MD, FACSK57.20 Diverticulitis of large intestine with perforation and abscess without bleedingFollow up:operating room Functional Status Description No Information Available Mental Status Description No Information Available Referrals Description No Information Available
--- OUTSIDE RECORDS SUMMARY | 2019-09-04 10:56 | XMS REPORT | Continuity of Care Document ---
:1970 External Reference #:[id number] Author Name Sybil Jeffers M.D. Address [address] [place] [address] Care Team Providers Name Role Phone Adelaida Fang M.D. - Family Care Team Information Copy And Print Associate Medicine [facility] - Diagnostic Care Team Information Copy And Print Associate Radiology Sybil Jeffers M.D. - Family Medicine Care Team Information Copy And Print Associate Unavailable [facility] - Care Team Information Copy And Print Associate [phone] Gastroenterology Problems Active Problems Provider Date Generalized anxiety disorder Sybil Jeffers M.D. Onset: 02/14/2018 Gastroesophageal reflux disease Sybil Jeffers M.D. Onset: 01/22/2019 Insomnia Sybil Jeffers M.D. Onset: 01/22/2019 Essential hypertension Sybil Jeffers M.D. Onset: 05/09/2019 Social History Type Date Description Comments Sex Unknown Tobacco Use Start: Unknown End: Former Cigarette Smoker 1-2 ppd x 18 yrs Unknown 1 Pack Daily Smoking Status Reviewed: 07/23/19 Former Cigarette Smoker 1-2 ppd x 18 yrs 1 Pack Daily ETOH Use Occasional beer 2-3 week Recreational Drug Use Denies Drug Use Tobacco Use Start: Unknown Patient is a current smoker, smokes every day Tobacco Use Start: Unknown Light tobacco smoker (10 or fewer cigarettes/day) Allergies, Adverse Reactions, Alerts Active Allergies Reaction Severity Comments Date Amoxil,Trimox 10/26/2004 Demerol 10/26/2004 Darvocet 10/26/2004 Codeine 10/26/2004 Hydrocodone 07/02/2010 Medications Active Medications SIG Qnty Indications Ordering Provider Date Amlodipine Besylate 1 by mouth every 30tabs Sybil Jeffers 05/09/2019 day M.D. 2.5mg Tablets Proair HFA 2 puffs every 8.500gm R06.02 [facility], 11/21/2017 108(90Base) 4-6 hours as M.D. mcg/Act Aerosol needed for cough J45.998 Albuterol Sulfate dispense 1 bullet 20bullets R06.02 [facility], 2017 into nebulizer, M.D. (2.5mg/3ML) 0.083% inhale twice a day, Nebulizer or up to 3 times daily if needed Alprazolam 1-2 tabs by mouth 60tabs F41.1 [facility], 07/29/2015 0.5mg twice a day as M.D. Tablets Dispers needed Valtrex take two tablets by 30tabs B00.89 [facility], 11/21/2011 1gm Tablets mouth twice a day M.D. for 1 day for each outbreak Lunesta take one tablet by 30tabs F51.05 [facility], 04/23/2008 3mg Tablets mouth at every M.D. bedtime, maximum 1 per day G47.09 History Medications Nicotrol use frequent 168units F17.210 [facility], 05/09/2019 - 10mg Inhaler continuous M.D. 07/23/2019 puffing x20min for each cartridge ; max 16 cartridges a day Symbicort inhale 2 puffs by 30.6gm R06.2 [facility], 05/09/2019 - mouth twice a day M.D. 07/23/2019 160-4.5mcg/Act Aerosol Omeprazole 1 tab by mouth 60caps [facility], 01/22/2019 - 40mg twice a day M.D. 05/09/[address] Bupropion 1 by mouth every 30tabs [facility], 01/22/2019 - Hydrochloride ER day M.D. 05/09/2019 (XL) 150mg Tablets ER 24HR Immunizations Description No Information Available Vital Signs Date Vital Result Comment 07/23/2019 10:18am BP Systolic 120 mmHg BP Diastolic 78 mmHg Heart Rate 76 /min Body Temperature 97.9 F Respiratory Rate 16 /min Height 61 inches 5'1" Weight 108.00 lb BMI (Body Mass Index) 20.4 kg/m2 05/09/2019 8:00am BP Systolic 158 mmHg BP Diastolic 90 mmHg Heart Rate 80 /min Body Temperature 98.6 F Height 61 inches 5'1" Weight 106.00 lb BMI (Body Mass Index) 20.0 kg/m2 Results Test Date Facility Test Result H/L Range Note CBC Auto Diff 06/10/2019 [facility] Blood Count 17.1 10^3/uL High 3.5- 10.8 Red Blood Count 4.53 10^6/uL Normal 3.70-4.87 Hemoglobin 14.3 g/dL Normal 12.0-16.0 Hematocrit 42 % Normal 35-47 Mean Corpuscular Volume 92 fL Normal 80-97 Mean Corpuscular Hemoglobin 32 pg High 27-31 Mean Corpuscular HGB Conc 34 g/dL Normal 31-36 Red Cell Distribution Width 14 % Normal 10-15 Platelet Count 292 10^3/uL Normal 150-450 Mean Platelet Volume 7.4 fL Normal 7.4-10.4 Abs Neutrophils 15.8 10^3/uL High 1.5-7.7 Abs Lymphocytes 0.3 10^3/uL Low 1.0-4.8 Abs Monocytes 0.8 10^3/uL Normal 0-0.8 Abs Eosinophils 0.0 10^3/uL Normal 0-0.6 Abs Basophils 0.1 10^3/uL Normal 0-0.2 Abs Nucleated RBC 0.0 10^3/uL Granulocyte % 92.8 % Lymphocyte % 1.7 % Monocyte % 4.9 % Eosinophil % 0.1 % Basophil % 0.5 % Nucleated Red Blood Cells % 0.0 Basic Metabolic Panel 06/10/2019 [facility] Sodium 131 mmol/L Low 135-145 Potassium 3.9 mmol/L Normal 3.5-5.0 Chloride 100 mmol/L Low 101-111 Co2 Carbon Dioxide 25 mmol/L Normal 22-32 Anion Gap 6 mmol/L Normal 2-11 Glucose 138 mg/dL High 70-100 Blood Urea Nitrogen 7 mg/dL Normal 6-24 Creatinine 0.60 mg/dL Normal 0.51-0.95 BUN/Creatinine Ratio 11.7 Normal 8-20 Calcium 9.5 mg/dL Normal 8.6-10.3 Egfr Non- 107.2 >60 Egfr 129.7 >60 1 Laboratory test finding 06/10/2019 [facility] [place] Reactive Protein 62.36 mg/L High <8.01 Liver Function Panel 06/10/2019 [facility] Total Protein 7.3 g/dL Normal 6.4- 8.9 Albumin 4.6 g/dL Normal 3.2-5.2 Globulin 2.7 g/dL Normal 2-4 Albumin/Globulin Ratio 1.7 Normal 1-3 Total Bilirubin 0.60 mg/dL Normal 0.2-1.0 Direct Bilirubin 0.10 mg/dL Normal 0.03-0.18 Indirect Bilirubin 0.5 mg/dL Normal 0.3-1.0 Alkaline Phosphatase 49 U/L Normal 34-104 Alt 11 U/L Normal 7-52 Ast 15 U/L Normal 13-39 Laboratory test finding 06/10/2019 [facility] Lipase 11 U/L Normal 11.0-82.0 Urinalysis Profile 06/10/2019 [facility] Urine Color Yellow Urine Appearance Clear Urine Specific [place] 1.011 Normal 1.010-1.030 Urine pH 7.0 Normal 5-9 Urine Urobilinogen Negative Negative Urine Ketones Trace Abnormal Negative Urine Protein Negative Negative Urine Leukocytes Negative Negative Urine Blood Negative Negative Urine Nitrite Negative Negative Urine Bilirubin Negative Negative Urine Glucose Negative Negative Laboratory test 05/09/2019 [facility]) Vitamin B-12 517 pg/mL 230-1050 finding Comprehensive 01/22/2019 [facility]) Sodium 139 mEq/L 134-149 Metabolic Prof Potassium 5.1 mEq/L 3.6-5.5 Chloride 99 mEq/L 94-112 Carbon Dioxide 26 mEq/L 21-32 Glucose 94 mg/dL 70-105 BUN 6 mg/dL 6-26 Creatinine 0.6 mg/dL 0.6-1.4 BUN/Creat Ratio 10.0 CALC 8.0-36.0 Calcium 10.1 mg/dL 8.6-10.2 Total Protein 7.7 g/dL 6.4-8.3 Albumin 5.1 g/dL 3.8-5.5 Globulin 2.6 g/dL 2.0-4.8 A/G Ratio 2.0 CALC 0.6-2.3 Alk. Phosphatase 44 U/L 30-110 Alt (SGPT) 15 U/L 7-35 Ast (Sgot) 15 U/L 5-34 Total Bilirubin 0.5 mg/dL 0.2-1.3 GFR Non- >60 ml/min/1.73m^ >=60 GFR >60 ml/min/1.73m^ >=60 Lipid Profile 01/22/2019 Bill Garland([facility]) Cholesterol 257 mg/dL High 120-200 Triglycerides 120 mg/dL 30-200 HDL Cholesterol 117 mg/dL High 30-85 LDL (Calculated) 116 CALC 0-129 VLDL Cholesterol 24 mg/dL 0-50 HDL Risk Factor 2.2 CALC 0.0-4.4 Laboratory test finding 01/22/2019 Bill Garland([facility]) TSH 2.55 mIU/L 0.50-6.00 Free T4 1.00 ng/dL 0.75-1.54 Vitamin B-12 262 pg/mL 230-1050 Vitamin D25 39 30-100 Serum Iron 115 g/dL 60-150 Ferritin 45 ng/mL 15-200 CBC Electronic a 01/22/2019 Bill Garland([facility]) WBC 7.0 x10^3/UL 4.0- 10.0 RBC 4.97 x10^6/UL 3.93-6.00 HGB 15.4 g/dL 12.0-17.0 HCT 45 % 35-50 MCV 90.7 fL 80.0-95.0 MCH 31.0 pg 25.6-32.2 MCHC 34.1 g/dL 32.2-36.0 RDW-CV 13.3 % 11.6-14.4 PLT 342 x10^3/UL 163-400 MPV 9.5 fL 9.4-12.4 Harish# 3.99 x10^3/UL 1.56-6.13 Lymph# 1.74 x10^3/UL 1.18-3.74 [facility]# 1.12 x10^3/UL High 0.24-0.82 Eos # 0.1 x10^3/UL 0.0-0.5 Baso # 0.03 x10^3/UL 0.01-0.08 Harish% 57.4 % 34.0-70.0 Lymph % 25.0 % 20.0-52.0 [facility]% 16.1 % High 5.0-12.0 2 Eos% 1.1 % 0.7-7.0 Baso% 0.4 % 0.1-1.2 1 Because ethnic data is not always readily available, this report includes an eGFR for both -Americans and non- Americans. The National Kidney Disease Education Program (NKDEP) does not endorse the use of the MDRD equation for patients that are not between the ages of 18 and 70, are , have extremes of body size, muscle mass, or nutritional status, or are non- or non-. According to the National Kidney Foundation, irrespective of diagnosis, the stage of the disease is based on the level of kidney function: Stage Description GFR(mL/min/1.73 m(2)) 1 Kidney damage with normal or decreased GFR 90 2 Kidney damage with mild decrease in GFR 60-89 3 Moderate decrease in GFR 30-59 4 Severe decrease in GFR 15-29 5 Kidney failure <15 (or dialysis) 2 RESULTS VERIFIED BY REPEAT ANALYSIS Procedures Date Code Description Status 02/07/2019 74289 Blood Pressure Monitoring Completed 02/01/2019 [id number] Mammogram Completed 09/25/2016 [id number] Colonoscopy Completed 12/09/2014 [id number] Mammogram Completed 02/28/2014 [id number] Mammogram Completed 05/31/2013 [id number] Mammogram Completed 05/29/2008 [id number] Mammogram Completed Medical Devices Description No Information Available Encounters Type Date Location Provider Dx Diagnosis Office Visit 05/09/2019 Main Office Sybil Jeffers M.D. I10 Essential ( primary) 8:00a hypertension F17.210 Nicotine dependence, cigarettes, uncomplicated R06.2 Wheezing D51.9 Vitamin B12 deficiency anemia, unspecified Z71.6 Tobacco abuse counseling L65.9 Nonscarring hair loss, unspecified Office Visit 02/07/2019 9:15a Sheree Jeffers, R03.0 Elevated Office M.D. blood-pressure reading, w/o diagnosis of htn Office Visit 02/06/2019 8:30a Sheree Jeffers R03.0 Elevated Office M.D. blood-pressure reading, w/o diagnosis of htn Office Visit 01/22/2019 2:00p Sheree Jeffers, Z00.01 Encounter for Office M.D. general adult medical exam w abnormal findings R03.0 Elevated blood-pressure reading, w/o diagnosis of htn F41.1 Generalized anxiety disorder L65.9 Nonscarring hair loss, unspecified F17.210 Nicotine dependence, cigarettes, uncomplicated Z12.31 Encntr screen mammogram for malignant neoplasm of breast K21.9 Gastro-esophageal reflux disease without esophagitis G47.00 Insomnia, unspecified Z71.6 Tobacco abuse counseling Assessments Date Code Description Provider 07/23/2019 I10 Essential (primary) hypertension Sybil Jeffers M.D. 07/23/2019 Z93.3 Colostomy status Sybil Jeffers M.D. 07/23/2019 F41.1 Generalized anxiety disorder Sybil Jeffers M.D. 07/23/2019 G47.00 Insomnia, unspecified Sybil Jeffers M.D. 05/09/2019 I10 Essential (primary) hypertension Sybil Jeffers M.D. 05/09/2019 F17.210 Nicotine dependence, cigarettes, uncomplicated Sybil Jeffers M.D. 05/09/2019 R06.2 Wheezing Sybil Jeffers M.D. 05/09/2019 D51.9 Vitamin B12 deficiency anemia, unspecified Sybil Jeffers M.D. 05/09/2019 Z71.6 Tobacco abuse counseling Sybil Jeffers M.D. 05/09/2019 L65.9 Nonscarring hair loss, unspecified Sybil Jeffers M.D. 02/07/2019 R03.0 Elevated blood-pressure reading, without Sybil Jeffers M.D. diagnosis of hypert 02/06/2019 R03.0 Elevated blood-pressure reading, without Sybil Jeffers M.D. diagnosis of hypert 01/22/2019 Z00.01 Encounter for general adult medical examination Sybil Jeffers M.D. with abnorma 01/22/2019 R03.0 Elevated blood-pressure reading, without Sybil Jeffers M.D. diagnosis of hypert 01/22/2019 F41.1 Generalized anxiety disorder Sybil Jeffers M.D. 01/22/2019 L65.9 Nonscarring hair loss, unspecified Sybil Jeffers M.D. 01/22/2019 F17.210 Nicotine dependence, cigarettes, uncomplicated Sybil Jeffers M.D. 01/22/2019 Z12.31 Encounter for screening mammogram for malignant Sybil Jeffers M.D. neoplasm of 01/22/2019 K21.9 Gastro-esophageal reflux disease without Sybil Jeffers M.D. esophagitis 01/22/2019 G47.00 Insomnia, unspecified Sybil Jeffers M.D. 01/22/2019 Z71.6 Tobacco abuse counseling Sybil Avon, M.D. Plan of Treatment Future Appointment(s):01/29/2020 9:00 am - Sybil Jeffers M.D. at [facility] Cvqkky1107/23/2019 - Sybil Jeffers M.D.I10 Essential (primary) hypertensionComments:The patient will continue to monitor blood pressure and let me know the blood pressure results if there are readings persistently above 140/90. Goal blood pressure is less than 130/80. Recommend low salt/cardiac diet such as the Mediterranean diet and routine exercise at least 30 minutes a day.Follow up:6 [id number] Colostomy statusComments:to reverse in Aug, discussed PT afterwards for core [id number] Generalized anxiety disorderComments:try taking 1-2 tabs twice a day to help with anxiety discussed habit forming potential; call jarrett if symptoms worsens; tried antidepressants in pastG47.00 Insomnia, unspecifiedComments:stable on regimenAllComments:Medication Management Patient Understands medications she's taking? Yes No Are there Barriers to Adherence? Yes No Has the patient been asked about herbal supplements and therapies, and OTC meds? Yes No Functional Status Description No Information Available Mental Status Description No Information Available Referrals Description No Information Available
[2019-09-04] MEDS ORDERED: Heparin VIAL(*) 5000 UNITS/ML VIAL (FIVE THOUSAND) ONE (11:05)
[2019-09-04] MEDS ORDERED: celeCOXIB CAP* 200 MG ONE (11:06)
[2019-09-04] MEDS ORDERED: Buffered Lidocaine 1% SYRIN* 1 ML/SYRINGE INTRADERM ONE (11:06)
[2019-09-04] MEDS ORDERED: Famotidine IV* 10 MG/ML 2 ML (20 mg) ONE (11:06)
[2019-09-04] MEDS ORDERED: Gabapentin CAP(*) 400 MG PO ONE (11:06)
[2019-09-04] MEDS ORDERED: Dexamethasone IV* 4 MG/ML 1 ML (4 MG) ONE (11:06)
[2019-09-04] MEDS ORDERED: Bupivacaine 0.25% EPI 200,000* 30 ML SDV ONE (11:14)
[2019-09-04] MEDS ORDERED: fentaNYL* 50 MCG/ML 5 ML VIAL (250 MCG VIAL) ONE (11:17)
[2019-09-04] MEDS ORDERED: Ondansetron INJ* 2 MG/ML VIAL ONE (11:17)
[2019-09-04] MEDS ORDERED: Lidocaine 2% PF * 5 ML VIAL ONE (11:17)
[2019-09-04] MEDS ORDERED: Ketorolac INJ* 30 MG/ML 1 ML VIAL ONE (11:17)
[2019-09-04] MEDS ORDERED: Rocuronium* 10 MG/ML VIAL ONE ×2 (11:17→13:10)
[2019-09-04] MEDS ORDERED: Propofol* 10 MG/ML 20 ML BTL ONE (11:17)
[2019-09-04] MEDS ORDERED: Midazolam* 1 MG/ML 5 ML VIAL (5 MG) ONE (11:17)
[2019-09-04] MEDS ORDERED: DiMENhydriNATE IV* 50 MG/ML VIAL IV PUSH PRN (12:24)
[2019-09-04] MEDS ORDERED: Naloxone* 0.4 MG/ML 1 ML VIAL IV PRN (12:24)
[2019-09-04] MEDS ORDERED: Scopolamine 1.5 mg* PATCH TRANSDERM PRN (12:24)
[2019-09-04] MEDS ORDERED: HYDROmorphone INJ1* 1 MG/ML SYRINGE IV PRN (12:24)
[2019-09-04] MEDS ORDERED: fentaNYL* 50 MCG/ML 2 ML VIAL (100 MCG VIAL) ONE ×4 (13:11→18:07)
[2019-09-04] MEDS: fentaNYL* 50 MCG/ML 2 ML VIAL (100 MCG VIAL) IV PRN ×4 (17:13→18:50)
--- NOTE | 2019-09-04 17:36 | BRIEFOPN ---
Brief Operative/Procedure Note - Operation Details Pre-Op Diagnosis: colostomy Post-Op Diagnosis: same Procedures: laparoscopic reversal of colostomy Surgeon(s)/Proceduralists: Adelaida. Assist: Mecenas; JO-ANN Valle Anesthesia: GET Estimated Blood Loss: 100 ml; IVF: 2100 ml RL Findings: as above Specimen(s)/Culture(s) Description: portion of rectum. drain: one SILVINO drain Complications: none
[2019-09-04] MEDS ORDERED: Acetaminophen TAB* 325 MG PO PRN (17:45)
[2019-09-04] MEDS ORDERED: HYDROmorphone INJ* 0.5 MG/0.5 ML SYRINGE IV SLOW PU PRN (17:46)
[2019-09-04] MEDS: Lactated Ringers 1000 ML Bag* 1,000 ML IV SCH (19:30)
[2019-09-04] MEDS ORDERED: diPHENhydraMINE IV* 50 MG/ML 1 ml VIAL (BENADRYL) IV ONE (20:40)
[2019-09-04] MEDS: Ketorolac INJ* 30 MG/ML 1 ML VIAL IV PUSH PRN (21:00)
[2019-09-04] MEDS: HYDROmorphone INJ1* 1 MG/ML SYRINGE IV SLOW PU PRN (21:25)
[2019-09-05] MEDS: HYDROmorphone INJ1* 1 MG/ML SYRINGE IV SLOW PU PRN ×6 (01:36→21:38)
[2019-09-05] MEDS: Ketorolac INJ* 30 MG/ML 1 ML VIAL IV PUSH PRN ×3 (03:00→17:07)
[2019-09-05] MEDS: Lactated Ringers 1000 ML Bag* 1,000 ML IV SCH ×2 (03:01→20:06)
--- NOTE | 2019-09-05 06:01 | OP ---
CC: Primary Care Doctor * DATE OF OPERATION: 09/04/19 - ROOM #338 DATE OF : 72 SURGEON: Robby Son MD ASSISTANTS: Dr. Alexis Bowling and JO-ANN Steen. ANESTHESIOLOGIST: Dr. Smiley. ANESTHESIA: General. PRE-OP DIAGNOSIS: Diverticulitis, status post Paramjit's procedure. POST-OP DIAGNOSIS: Diverticulitis, status post Paramjit's procedure. OPERATIVE PROCEDURE: Reversal of colostomy. ESTIMATED BLOOD LOSS: 100 cc. FLUIDS: 2100 cc of crystalloid fluid given. URINE OUTPUT: Please see chart. Clinton catheter was inserted. DRAINS: #10 SILVINO drain left in the pelvis. SPECIMENS: 1. Colostomy. 2. Rectosigmoid. DESCRIPTION OF PROCEDURE: The patient was identified in the preoperative area. She was marked. Consent signed. We discussed the case again going over the risks, benefits, and alternatives, possible complications, and prolonged hospitalization, and even need for additional surgeries. The patient signed consent and was brought to the operating room, placed on the operating table in supine position. Preoperative antibiotics were given. Sequential devices were placed on bilateral extremities. General anesthesia was induced. Clinton catheter inserted. The patient's colostomy was suture closed with a 2-0 silk suture, and the patient's abdomen was prepped and draped in a standard surgical fashion. With Betadine, a Tegaderm was applied to the colostomy site and the time-out was performed. The right upper quadrant incision was made to midclavicular line just 2 fingerbreadths below the costal margin. This was deepened down the anterior fascia, which was elevated and a Veress needle was inserted into the abdominal cavity. This proved somewhat difficult and we were able to adjust our direction on this until we could fill the abdomen with air. The patient tolerated the insufflation to 15 mmHg without difficulty. We then placed a 5- mm optical trocar and laparoscope was inserted through this. There was a fair amount of adhesions in the midline and also appeared that the Veress needle went and had a small injury to the liver, but this was not bleeding. We did see some blood above the liver, but we did not deal with this at this time as it was not actively bleeding. Attention was then turned towards the midline. An area just superior to the umbilicus was identified with clear of adhesions and a 12-mm trocar was inserted through this. This area gave us the ability to take down with both sharp and blunt dissection the adhesions to the anterior abdominal wall along the midline. Once we were able to do this, we could place another 5 mm trocar in the suprapubic area. Then, we turned our attention to the colostomy site. This appeared intact with no evidence of herniation. We left the colostomy in place, then turned our attention to the pelvis. Small bowel was adhered to itself significantly as well to the omentum. Deliberate sharp dissection was carried out to release the small bowel from the pelvis. Most of these were wispy adhesions itself that they were taken down with sharp dissection. Good portion of this was adhered to the uterus, this was taken off sharply as well as at the staple line of the stump from the Paramjit's procedure. This allowed us to get the small bowel up and out of the way at least look at the pelvis. The stump appeared long and we left it at this and turned our attention towards the descending colon as it extended towards the colostomy. We then lysed adhesions on the lateral wall taking it towards the white line of Toldt, which was taken with cautery and LigaSure device until we could free up the splenic flexure, which was done. With this performed, we then had turned attention to small bowel, which was tucked under the colostomy in the left pericolic gutter. This was released with sharp and blunt dissection as well. Next, we turned our attention to the colostomy. Sharp dissection was carried out to free the colon from the skin and this was sharply dissected off of all the way to the abdominal wall until we were inside the abdomen and we could pull this up into our field of view. This was well released and we felt we had good distance on this and saw good blood supply. I did have to pull the colon up out of our incision and both bluntly and sharply dissected the loops of small bowel off of the colonic mesentry. Next, we cleaned off, we fashioned up this portion of the colostomy and chose that portion just about 1 cm distal from the colostomy and placed a pursestring device around the colon. Using a 3-0 Monocryl suture, we created the pursestring suture around the distal bowel. The bowel was well vascularized. It showed no evidence of diverticula. It was narrow and did not encompass anything other than a 25 mm sizer. For this reason, a 25 mm 4.8 EA stapler was utilized. We placed the anvil into the colon and tied our Monocryl suture down. We saw no serosal injuries and there was no creeping fat at the site. We then put this back into the abdomen. We then turned our attention to the small bowel and tried to pull this up into our incision, but it did not prove easy given the small size of this opening. The opening was then cleaned off inferiorly and superiorly identifying the anterior fascia. #1 Vicryl sutures were placed, we placed three in all, only tied one, and placed a 12-mm blunt trocar with a balloon into the abdomen and gained pneumoperitoneum again. Into peritoneum we had this actual port in, we entered into the abdomen again with the camera. We looked down at the pelvis where we used the 25 mm sizer and placed this up the rectum. This was at sharp angulation and we were not able to pass this with ease. Sigmoidoscope was applied. There was no evidence of injury or diverticula, but I made the incision to transect the most proximal portion of the stump, so with LigaSure device we took vasculature to this and then extended our incision over the peritoneal reflection with cautery. With this perform, we did easily pass the 25 mm EA stapler. We made it to the descending colon showing its proper orientation making sure that the small bowel was out of the pericolic gutter. The donuts were formed, but not passed off of as specimen from the EA stapler. We then tested the anastomosis in a standard fashion with a negative leak test. Hemostasis was excellent at the pelvis. We turned our attention to the left upper quadrant. We did suction some blood at the site, but it was not significant. I did not see any active bleeding. We reviewed the liver where the veress needle entered and there was no continued bleeding at this site. Next, the small bowel was attempted to be run from the cecum. There were significant adhesions to itself and this proved somewhat difficult to feel confident in moving through all the bowel. Peristalsis was appreciated and there was no evidence of enteric contents. With good hemostasis, we then placed a #10 SILVINO drain into the abdomen, brought it up to the 5 mm suprapubic site and sutured to the skin with a 3-0 Prolene suture. The abdomen allowed to collapse. Trocars were removed under direct vision. Next, the umbilical port site was reapproximated with single 0 Vicryl suture. We then tied our Vicryl sutures that had been placed at the colostomy site. Wound was then irrigated and closed with 3-0 Vicryl followed by 4-0 Monocryl subcuticular suture. Steri-Strips and sterile dressings were applied. Similar closure at the other site was done. The patient was woken up and transferred to the PACU in stable condition. [id number]/[facility] #: [id number] [facility]
[2019-09-05 06:03] LABS: ABS Basophils 0.1 10^3/ul (0-0.2); ABS Eosinophils 0.1 10^3/ul (0-0.6); ABS Lymphocytes 1.4 10^3/ul (1.0-4.8); ABS Monocytes 1.1 10^3/ul (0-0.8); ABS Neutrophils 8.1 10^3/ul (1.5-7.7); Eosinophil % 0.7 %; Hematocrit 33 % (35-47); Hemoglobin 11.3 g/dL (12.0-16.0); Lymphocyte % 13.4 %; Mean Corpuscular HGB Conc 35 g/dL (31-36); Mean Corpuscular Hemoglobin 32 pg (27-31); Mean Corpuscular Volume 91 fL (80-97); Mean Platelet Volume 7.6 fL (7.4-10.4); Platelet Count 270 10^3/uL (150-450); Red Blood Count 3.57 10^6 /uL (3.70-4.87); Red Cell Distribution Width 14 % (10-15); White Blood Count 10.8 10^3/uL (3.5-10.8)
[2019-09-05 06:18] LABS: BUN/Creatinine Ratio 7.5 (8-20); Calcium 8.5 mg/dL (8.6-10.3); EGFR Non-African American 123.1 (>60); Potassium 3.8 mmol/L (3.5-5.0)
[2019-09-05] MEDS: Ondansetron INJ* 2 MG/ML VIAL IV PRN ×3 (08:13→21:38)
[2019-09-05] MEDS: Nicotine PATCH 14 MG/24 HR* PATCH TRANSDERM SCH (08:13)
[2019-09-05] MEDS ORDERED: NS 0.9% 1000 ML** 1,000 ML IV ONE (08:33)
--- NOTE | 2019-09-05 09:42 | PN ---
Progress Note - Progress Note Date of Service: 09/05/19 SOAP: Subjective: Pt seen and examined. sitting in chair. could not sleep some nausea, though thirst and hungry now; abdo pain Objective: Temp Pulse Resp BP Pulse Ox 98.4 F 81 16 117/75 95 09/05/19 03:20 09/05/19 03:20 09/05/19 06:55 09/05/19 03:20 09/05/19 08:00 a and o x3, nad lungs clear abdo: soft/ incisional tenderness SILVINO serosang ext wnl labs noted Assessment: POD1 reversal colostomy Plan: cont NPO d/c martínez pain control bolus
[2019-09-05] MEDS: diPHENhydraMINE IV* 50 MG/ML 1 ml VIAL (BENADRYL) IV PRN ×2 (15:14→21:41)
[2019-09-05] MEDS: Heparin VIAL(*) 5000 UNITS/ML VIAL (FIVE THOUSAND) SUBCUT SCH (21:39)
[2019-09-05] MEDS: Nicotine Patch Removal NOTE PATCH OFF SCH (22:13)
[2019-09-06] MEDS: HYDROmorphone INJ1* 1 MG/ML SYRINGE IV SLOW PU PRN ×2 (01:53→04:21)
[2019-09-06] MEDS: Ketorolac INJ* 30 MG/ML 1 ML VIAL IV PUSH PRN ×4 (02:54→21:52)
[2019-09-06] MEDS: Lactated Ringers 1000 ML Bag* 1,000 ML IV SCH (04:05)
[2019-09-06] MEDS: Ondansetron INJ* 2 MG/ML VIAL IV PRN (04:21)
[2019-09-06] MEDS: diPHENhydraMINE IV* 50 MG/ML 1 ml VIAL (BENADRYL) IV PRN ×2 (04:30→11:36)
[2019-09-06] MEDS: Heparin VIAL(*) 5000 UNITS/ML VIAL (FIVE THOUSAND) SUBCUT SCH ×3 (06:24→21:42)
[2019-09-06] MEDS: Nicotine PATCH 14 MG/24 HR* PATCH TRANSDERM SCH (08:42)
[2019-09-06] MEDS: D5W 1/2 NS KCl 20 Meq 1000 ML* 1,000 ML IV SCH (09:14)
[2019-09-06] MEDS: HYDROmorphone TAB* 2 MG PO PRN ×3 (11:35→23:55)
--- NOTE | 2019-09-06 13:09 | PN ---
Progress Note - Progress Note Date of Service: 09/06/19 SOAP: Subjective: Patient seen and examined. Continued lower abdominal pain. No nausea or vomiting. Patient is passing flatus and having small loose bowel movements. She is thirsty and hungry. Patient is relating the floor and we did a lap together. Objective: Temp Pulse Resp BP Pulse Ox 98.7 F 96 20 145/94 97 09/06/19 11:30 09/06/19 11:30 09/06/19 11:36 09/06/19 11:30 09/06/19 11:30 Intake & Output 09/05/19 09/06/19 09/06/19 22:59 06:59 14:59 Intake Total 0 980 Output Total 30 1570 Balance 0 950 -1570 Alert and oriented 3, no apparent distress Lungs clear all station bilaterally Abdomen: Soft, mild distention, minimal tenderness. Dressings removed. No redness. Binder reapplied. SILVINO: Serous output. Extremities within normal limits. No new labs. Assessment: Postoperative day two left fluoroscopic reversal of colostomy. Bowel function returning. Plan: Clear diet Presented fluids and change to D5 half-normal saline Labs in the a.m. Out of bed, incentive [facility] to cover me until 09/09/19
[2019-09-06] MEDS ORDERED: Zolpidem TAB* 10 MG PO SCH (21:00)
[2019-09-06] MEDS ORDERED: traZODone TAB* 50 MG TAB PO PRN (21:15)
[2019-09-06] MEDS ORDERED: traZODone TAB* 50 MG TAB PO SCH (21:30)
[2019-09-06] MEDS: Nicotine Patch Removal NOTE PATCH OFF SCH (21:48)
[2019-09-07] MEDS: D5W 1/2 NS KCl 20 Meq 1000 ML* 1,000 ML IV SCH (05:13)
[2019-09-07] MEDS: Heparin VIAL(*) 5000 UNITS/ML VIAL (FIVE THOUSAND) SUBCUT SCH ×2 (05:14→12:35)
[2019-09-07] MEDS: Ketorolac INJ* 30 MG/ML 1 ML VIAL IV PUSH PRN ×2 (05:19→11:32)
[2019-09-07 06:16] LABS: ABS Basophils 0.1 10^3/ul (0-0.2); ABS Eosinophils 0.6 10^3/ul (0-0.6); ABS Lymphocytes 1.5 10^3/ul (1.0-4.8); ABS Neutrophils 3.2 10^3/ul (1.5-7.7); Eosinophil % 8.8 %; Hematocrit 31 % (35-47); Hemoglobin 10.6 g/dL (12.0-16.0); Lymphocyte % 23.7 %; Mean Corpuscular HGB Conc 35 g/dL (31-36); Mean Corpuscular Hemoglobin 31 pg (27-31); Mean Corpuscular Volume 90 fL (80-97); Mean Platelet Volume 7.7 fL (7.4-10.4); Platelet Count 261 10^3/uL (150-450); Red Blood Count 3.39 10^6 /uL (3.70-4.87); Red Cell Distribution Width 14 % (10-15); White Blood Count 6.4 10^3/uL (3.5-10.8)
[2019-09-07 06:36] LABS: BUN/Creatinine Ratio 4.9 (8-20); Calcium 7.3 mg/dL (8.6-10.3); EGFR African American 200.3 (>60); EGFR Non-African American 165.6 (>60); Magnesium 1.5 mg/dL (1.9-2.7); Phosphorus 2.6 mg/dL (2.5-5.0); Potassium 3.1 mmol/L (3.5-5.0)
[2019-09-07] MEDS: HYDROmorphone TAB* 2 MG PO PRN ×2 (08:56→12:58)
[2019-09-07] MEDS: Nicotine PATCH 14 MG/24 HR* PATCH TRANSDERM SCH (08:57)
[2019-09-07 11:19] VITALS: BP 165/86
[2019-09-07] MEDS ORDERED: Potassium Chlor TAB* 20 MEQ TAB.ER PO ONE (12:15)
--- NOTE | 2019-09-07 12:16 | PN ---
Progress Note - Progress Note Date of Service: 09/07/19 SOAP: Subjective: Having BMs and flatus. No N/V. Wants to eat. Pain controlled. Would like to go home today. Objective: Vital Signs Temp 98.2 F 09/07/19 11:18 Pulse 86 09/07/19 11:18 Resp 16 09/07/19 11:18 BP 165/86 09/07/19 11:18 Pulse Ox 99 09/07/19 11:18 Gen: well appearing Abd: +BS; incisions c/d/i; no erythema; soft and mildly tender; SILVINO SS. Intake & Output 09/06/19 09/07/19 09/07/19 18:59 06:59 18:59 Intake Total 1410 2730 710 Output Total 2495 1415 1370 Balance -1085 1315 -660 Intake: IV Fluids 980 D5W 1/2 NS 20 meq KCL 980 Oral 1410 1750 710 Output: SILVINO #1 70 65 20 Urine 2425 1350 1350 Other: Estimated Void Medium Medium Medium Date of Last Bowel 09/06/19 Movement # Bowel Movements 6 6 Estimated Stool Amount Small Medium # Voids 2 4 2 Laboratory Results - last 24 hr 09/07/19 09/07/19 06:00 06:00 WBC 6.4 RBC 3.39 L Hgb 10.6 L Hct 31 L MCV 90 MCH 31 MCHC 35 RDW 14 Plt Count 261 MPV 7.7 Neut % (Auto) 50.5 Lymph % (Auto) 23.7 Pope % (Auto) 15.9 Eos % (Auto) 8.8 Baso % (Auto) 1.1 Absolute Neuts (auto) 3.2 Absolute Lymphs (auto) 1.5 Absolute Monos (auto) 1.0 H Absolute Eos (auto) 0.6 Absolute Basos (auto) 0.1 Absolute Nucleated RBC 0.0 Nucleated RBC % 0.0 Sodium 138 Potassium 3.1 L Chloride 109 Carbon Dioxide 24 Anion Gap 5 BUN 2 L Creatinine 0.41 L Est GFR ( Amer) 200.3 Est GFR (Non-Af Amer) 165.6 BUN/Creatinine Ratio 4.9 L Glucose 91 Calcium 7.3 L Phosphorus 2.6 Magnesium 1.5 L Assessment: POD#3 s/p lap revsl colostomy. Doing well. Hypokalemia. Plan: Adv diet. Replete K+. D/C drain. Home later today or AM.
== END 2019-09-07 14:45 | disposition home or self-care (01) | DRG 223 ==
LOC: AA 10:52 → SSU 17:37
PROVIDERS: ADMIT Surgery; ATTEND Surgery
PROC: 0DSN4ZZ Reposition Sigmoid Colon, Percutaneous Endoscopic Approach (ICD-10-PCS; principal; 2019-09-04 12:30)
DX: Z43.3 Encounter for attention to colostomy (principal); Z88.6 Allergy status to analgesic agent; Z88.8 Allergy status to other drugs, medicaments and biological substances; Z88.5 Allergy status to narcotic agent; Z87.891 Personal history of nicotine dependence; E87.6 Hypokalemia
CPT/HCPCS: 36415; 80048; 83735; 84100; 85025; 88304; 88307; A9270-GY; C1776; J1100; J1170; J1200; J1335; J1644; J1885; J2250; J2405; J2704; J3010

== ENCOUNTER 2020-08-11 05:42 | Inpatient (IN) ==
[2020-08-11] MEDS ORDERED: Famotidine IV 10 MG/ML 2 ml VIAL (20 mg) IV ONE (06:00)
[2020-08-11] MEDS ORDERED: Buffered Lidocaine 1% SYRIN 1 ml INTRADERM ONE ×2 (06:00→06:11)
[2020-08-11] MEDS ORDERED: Lactated Ringers 1000 ml BAG 1,000 ML IV SCH (06:00)
[2020-08-11] MEDS ORDERED: Ondansetron ODT 4 mg TAB 4 MG TAB ONE (06:10)
[2020-08-11] MEDS ORDERED: Dexamethasone IV 4 MG/ML VIAL 1 ml VIAL ONE (06:10)
[2020-08-11] MEDS ORDERED: ceFAZolin 2 GM PREMIX 2 GM/50 ML BAG ONE (06:11)
[2020-08-11] MEDS ORDERED: Famotidine IV 10 MG/ML 2 ml VIAL (20 mg) ONE (06:11)
[2020-08-11] MEDS ORDERED: Ondansetron 4 mg VIAL 2 MG/ML 2 ml VIAL ONE (06:12)
[2020-08-11] MEDS ORDERED: Methylene Blue 0.5 % 50 MG/10 ML AMP IV ONE (07:05)
[2020-08-11] MEDS ORDERED: Lidocaine 1% w EPI 1:100,000 MDV 20 ML VIAL ONE (07:05)
[2020-08-11] MEDS ORDERED: Bupivacaine 0.25% SDV PF 10 ML VIAL INJ ONE (07:06)
[2020-08-11] MEDS ORDERED: fentaNYL 100 mcg/2 ml 50 MCG/ML VIAL ONE ×3 (07:31→11:44)
[2020-08-11] MEDS ORDERED: Midazolam 2 mg/2 ml VIAL 1 mg/ml 2 ml VIAL (2 mg) ONE ×2 (07:31→07:52)
[2020-08-11] MEDS ORDERED: Lidocaine 2% PF 5 ML VIAL ONE (07:31)
[2020-08-11] MEDS ORDERED: Propofol 10 MG/ML 20 ML BTL ONE (07:54)
[2020-08-11] MEDS ORDERED: Rocuronium 50 mg VIAL 10 mg/ml 5 ml VIAL (50 mg) ONE (07:54)
[2020-08-11] MEDS ORDERED: Ketamine HCL 50 mg/ml 10 ml VIAL (500 MG) ONE (08:05)
[2020-08-11] MEDS ORDERED: Dexmedetomidine 200 mcg/2 ml 2 ml VIAL (200 mcg) ONE (08:05)
[2020-08-11] MEDS ORDERED: Acetaminophen IV 1 GM/100ML 100 ML ONE (08:06)
[2020-08-11] MEDS ORDERED: Naloxone 0.4 mg VIAL 0.4 mg/ml 1 ml VIAL IV PRN (09:04)
[2020-08-11] MEDS ORDERED: Levalbuterol 0.63MG/3ML NEB UNIT OF USE INH PRN (09:04)
[2020-08-11] MEDS ORDERED: Ondansetron 4 mg VIAL 2 MG/ML 2 ml VIAL IV PRN ×2 (09:04→11:41)
[2020-08-11] MEDS ORDERED: Bupivacaine 0.25% SDV 30 ML ONE (11:17)
[2020-08-11] MEDS ORDERED: Al Hydrox/Mg Hydrox/Simet LIQ 30 ML UDC PO PRN (11:41)
[2020-08-11] MEDS ORDERED: NS 0.9% 1000 ml BAG 1,000 ML IV SCH (11:45)
[2020-08-11] MEDS: fentaNYL 100 mcg/2 ml 50 MCG/ML VIAL IV PRN ×4 (11:49→12:25)
[2020-08-11] MEDS ORDERED: diPHENhydraMINE 25 mg TAB PO PRN (12:02)
[2020-08-11] MEDS ORDERED: HYDROmorphone 1 MG/1 ML SYRINGE ONE (12:33)
[2020-08-11] MEDS: HYDROmorphone 1 MG/1 ML SYRINGE IV PRN ×3 (12:34→13:05)
[2020-08-11] MEDS: HYDROmorphone 0.5 MG/0.5 ML SYRINGE IV SLOW PU PRN ×4 (14:31→23:47)
[2020-08-11] MEDS: diPHENhydraMINE IV 50 MG/ML 1 ml VIAL (BENADRYL) IV PRN ×2 (14:58→20:40)
[2020-08-11] MEDS: ceFAZolin 1 GM ADVAN 1 GM in NS 0.9% 50 ML 50 ML IVPB SCH ×2 (16:32→23:46)
[2020-08-12] MEDS: HYDROmorphone 0.5 MG/0.5 ML SYRINGE IV SLOW PU PRN ×2 (02:37→07:43)
[2020-08-12] MEDS: ceFAZolin 1 GM ADVAN 1 GM in NS 0.9% 50 ML 50 ML IVPB SCH (07:40)
[2020-08-12 08:03] VITALS: BP 155/91
[2020-08-12] MEDS ORDERED: Albuterol HFA INHALER 8 gm MDI INH PRN (08:47)
[2020-08-12] MEDS ORDERED: Cholecalciferol (VIT D3) 1,000 unit TAB PO SCH (09:00)
[2020-08-12] MEDS ORDERED: Multivitamins/Minerals TAB PO SCH (09:00)
[2020-08-14] MEDS ORDERED: Scopolamine PATCH Remove NOTE PATCH OFF ONE (09:05)
== END 2020-08-12 10:30 | disposition home or self-care (01) | DRG 227 ==
LOC: AA 05:42 → SSU 11:41
PROVIDERS: ADMIT Plastic Surgery; ATTEND Plastic Surgery